=== PATIENT | male | born 1970 | race African-American/Black ===

== ENCOUNTER 2022-02-24 15:03 | Inpatient (IN) | payer MEDICAID ==
[~2022-02-24] VITALS: Ht 193 cm; Wt 77.2 kg
[2022-02-24 15:43] LABS: EOSINOPHILS % (AUTO) 6.9 % (1.0-6.0); HEMATOCRIT 41.9 % (41-53); HEMOGLOBIN 13.4 g/dL (13.5-17.5); LYMPHOCYTES # (AUTO) 2.4 K/uL (1.0-4.8); LYMPHOCYTES % (AUTO) 44.7 % (22.0-44.0); MEAN CORPUSCULAR HGB CONC 32.1 G/dL (31.0-37.0); MEAN CORPUSCULAR VOLUME 75 fL (80-100); MONOCYTES # (AUTO) 0.6 K/uL (0.1-1.0); MONOCYTES % (AUTO) 10.8 % (2.0-9.0); NEUTROPHILS % (AUTO) 36.6 % (40.0-70.0); PLATELET COUNT (AUTO) 161 K/uL (150-450); RED CELL DISTRIBUTION WIDTH 16.4 % (11.5-14.5)
[2022-02-24 15:55] LABS: ANION GAP 5 mmol/L (8-16); CALCIUM, TOTAL 9.1 mg/dL (8.8-10.5); CARBON DIOXIDE 29 mmol/L (22-29); CHLORIDE 107 mmol/L (98-107); GLOMERULAR FILTR. RATE CALC > 60 mL/min (>60); GLUCOSE,RANDOM 66 mg/dL (70-110); POTASSIUM 3.8 mmol/L (3.5-5.1); SODIUM SERUM 141 mmol/L (136-145); UREA NITROGEN, BLOOD 12 mg/dL (7-18)
[2022-02-24 16:00] LABS: ALANINE AMINOTRANSFERASE 19 U/L (12-78); ALBUMIN 3.7 g/dL (3.4-5.0); ALKALINE PHOSPHATASE 74 U/L (46-116); ASPARTATE AMINOTRANSFERASE 16 U/L (15-37); BILIRUBIN,TOTAL 0.7 mg/dL (0.1-1.0); TOTAL PROTEIN, SERUM 7.3 g/dL (6.4-8.2)
[2022-02-24] MEDS ORDERED: HALOPERIDOL 5 MG TABLET PO ONE (16:00)
[2022-02-24] MEDS ORDERED: LORazepam 2 MG TABLET PO ONE (16:00)
[2022-02-24] MEDS ORDERED: DiphenhydrAMINE HCL 25 MG CAPSULE PO ONE (16:00)
[2022-02-24] MEDS ORDERED: ZOLPIDEM TARTRATE 10 MG TABLET PO PRN (17:00)
[2022-02-24 17:26] LABS: APPEARANCE,URINE CLEAR (CLEAR); BILIRUBIN,URINE NEGATIVE (NEGATIVE); GLUCOSE, URINE (UA) NEGATIVE (NEGATIVE); KETONES,URINE NEGATIVE (NEGATIVE); LEUKOCYTE ESTERASE ,URINE NEGATIVE (NEGATIVE); NITRATE,URINE NEGATIVE (NEGATIVE); OCCULT BLOOD,URINE NEGATIVE (NEGATIVE); PH,URINE 7.5 (5.0-8.0); PROTEIN,URINE NEGATIVE (NEGATIVE); UROBILINOGEN,URINE <=1.0 mg/dL (<=1.0)
[2022-02-24 17:35] LABS: AMPHET/METH SCREEN,URINE NEGATIVE (NEGATIVE); BARBITURATE SCREEN, URINE NEGATIVE (NEGATIVE); BENZODIAZEPINES SCREEN,URINE NEGATIVE (NEGATIVE); CANNABINOID SCREEN,URINE NEGATIVE (NEGATIVE); COCAINE SCREEN,URINE NEGATIVE (NEGATIVE); METHADONE SCREEN, URINE NEGATIVE (NEGATIVE); OPIATE SCREEN,URINE NEGATIVE (NEGATIVE)
[2022-02-24 17:36] LABS: PHENCYCLIDINE SCREEN,URINE NEGATIVE (NEGATIVE)
[2022-02-24 18:15] LABS: COVID AG,FIA SOURCE NASAL SWAB
[2022-02-24 22:35] VITALS: BP 130/94
[2022-02-25] MEDS ORDERED: IBUPROFEN 600 MG TABLET PO PRN (01:15)
[2022-02-25] MEDS ORDERED: ONDANSETRON HCL 4 MG TABLET PO PRN ×2 (01:15→14:00)
[2022-02-25] MEDS ORDERED: MAGNESIUM HYDROXIDE SUSPENSION 30 ML UDCUP PO PRN ×2 (01:15→14:00)
[2022-02-25] MEDS ORDERED: CloNIDine HCL 0.1 MG TABLET PO PRN ×2 (01:15→14:00)
[2022-02-25] MEDS ORDERED: BACITRACIN 28 GM OINTMENT TP PRN (01:15)
[2022-02-25] MEDS ORDERED: ALBUTEROL SULFATE HFA 90 MCG/PUFF 8 GM INHALER IH PRN ×2 (01:15→14:00)
[2022-02-25] MEDS ORDERED: OMEPRAZOLE 20 MG CAPSULE PO PRN (01:15)
[2022-02-25] MEDS ORDERED: MAG HYDROX/AL HYDROX/SIMETH ES 30 ML SUSPENSION UDCUP PO PRN ×2 (01:15→14:00)
[2022-02-25] MEDS ORDERED: DOCUSATE SODIUM 100 MG CAPSULE PO PRN ×2 (01:15→14:00)
[2022-02-25] MEDS ORDERED: LOPERAMIDE HCL 2 MG CAPSULE PO PRN ×2 (01:15→14:00)
[2022-02-25] MEDS ORDERED: ACETAMINOPHEN 325 MG TABLET PO PRN ×2 (01:15→14:00)
[2022-02-25] MEDS ORDERED: BENZOCAINE/MENTHOL LOZENGE PO PRN (01:15)
[2022-02-25] MEDS ORDERED: PETROLATUM,WHITE 28 GM JELLY TP PRN ×2 (01:15→14:00)
[2022-02-25] MEDS: OMEPRAZOLE 20 MG CAPSULE PO SCH (08:15)
[2022-02-25 09:07] VITALS: BP 144/86
[2022-02-25] MEDS: LORazepam 2 MG TABLET PO PRN (11:15)
[2022-02-25] MEDS: HALOPERIDOL 5 MG TABLET PO PRN (11:16)
[2022-02-25] MEDS ORDERED: GuaiFENesin/D-METHORPHAN [SUGAR-FREE] 200-20MG/10 ML SYRUP UDCUP PO PRN (14:00)
[2022-02-25] MEDS ORDERED: NICOTINE 14 MG/24 HOUR PATCH TD PRN (14:00)
[2022-02-25] MEDS ORDERED: IBUPROFEN 400 MG TABLET PO PRN (14:00)
[2022-02-25 16:15] VITALS: BP 110/86
[2022-02-25] MEDS: RisperiDONE 2 MG TABLET PO SCH (20:58)
[2022-02-26] MEDS: RisperiDONE 2 MG TABLET PO SCH ×2 (08:21→20:10)
[2022-02-26] MEDS: OMEPRAZOLE 20 MG CAPSULE PO SCH (08:21)
[2022-02-26] MEDS: HALOPERIDOL 5 MG TABLET PO PRN (08:21)
[2022-02-26 16:00] VITALS: BP 110/69
[2022-02-26] MEDS: LORazepam 2 MG TABLET PO PRN (16:49)
[2022-02-27 08:00] VITALS: BP 112/78
[2022-02-27] MEDS: RisperiDONE 2 MG TABLET PO SCH ×2 (08:30→21:07)
[2022-02-27] MEDS: OMEPRAZOLE 20 MG CAPSULE PO SCH (08:30)
[2022-02-27 16:33] VITALS: BP 122/89
[2022-02-28 08:25] VITALS: BP 122/62
[2022-02-28] MEDS: OMEPRAZOLE 20 MG CAPSULE PO SCH (08:37)
[2022-02-28] MEDS: RisperiDONE 2 MG TABLET PO SCH ×2 (08:37→20:14)
[2022-02-28 16:15] VITALS: BP 129/94
[2022-03-01] MEDS: OMEPRAZOLE 20 MG CAPSULE PO SCH (09:15)
[2022-03-01] MEDS: RisperiDONE 2 MG TABLET PO SCH (09:15)
[2022-03-01 09:40] VITALS: BP 115/80
[2022-03-01] MEDS ORDERED: QUET200T PO (10:56)
[2022-03-01] MEDS ORDERED: OMEP20 PO (11:19)
== END 2022-03-01 13:15 | disposition home or self-care (01) | DRG 750 ==
LOC: EMS 15:13 → 3EI 20:39
PROVIDERS: ADMIT Psychiatry & Neurology Psychiatry; ATTEND Psychiatry & Neurology Psychiatry
DX: F20.0 Paranoid schizophrenia (principal); R45.851 Suicidal ideations; F32.A Depression, unspecified; G47.00 Insomnia, unspecified; I10 Essential (primary) hypertension; J44.9 Chronic obstructive pulmonary disease, unspecified; K21.9 Gastro-esophageal reflux disease without esophagitis; K59.00 Constipation, unspecified; F12.90 Cannabis use, unspecified, uncomplicated; Z20.822 Contact with and (suspected) exposure to COVID-19
CPT/HCPCS: 80053; 81003; 85025; 87081; 99285; G0480

== ENCOUNTER 2022-04-22 20:49 | Inpatient (IN) | payer MEDICAID ==
[~2022-04-22] VITALS: Ht 193 cm; Wt 78.9 kg
[~2022-04-22 20:49] MED LIST: OMEP20 PO; QUET200T PO
[2022-04-22 21:36] LABS: COVID AG,FIA SOURCE NASOPHARYNGEAL
[2022-04-22 21:39] LABS: BASOPHILS % (AUTO) 0.6 % (0.0-2.0); EOSINOPHILS % (AUTO) 4.2 % (1.0-6.0); HEMATOCRIT 39.4 % (41-53); HEMOGLOBIN 12.5 g/dL (13.5-17.5); LYMPHOCYTES # (AUTO) 1.8 K/uL (1.0-4.8); LYMPHOCYTES % (AUTO) 34.4 % (22.0-44.0); MEAN CORPUSCULAR HEMOGLOBIN 24.1 pg (26.0-34.0); MEAN CORPUSCULAR HGB CONC 31.7 G/dL (31.0-37.0); MEAN CORPUSCULAR VOLUME 76 fL (80-100); MONOCYTES # (AUTO) 0.6 K/uL (0.1-1.0); MONOCYTES % (AUTO) 11.7 % (2.0-9.0); NEUTROPHILS # (AUTO) 2.5 K/uL (1.8-7.7); NEUTROPHILS % (AUTO) 49.1 % (40.0-70.0); PLATELET COUNT (AUTO) 213 K/uL (150-450); RED BLOOD CELL COUNT(AUTO) 5.19 MIL/uL (4.50-5.90); RED CELL DISTRIBUTION WIDTH 14.1 % (11.5-14.5)
[2022-04-22 21:49] LABS: ANION GAP 9 mmol/L (8-16); CALCIUM, TOTAL 9.6 mg/dL (8.8-10.5); CARBON DIOXIDE 26 mmol/L (22-29); CHLORIDE 100 mmol/L (98-107); CREATININE 1.12 mg/dL (0.60-1.30); GLUCOSE,RANDOM 126 mg/dL (70-110); POTASSIUM 4.1 mmol/L (3.5-5.1); SODIUM SERUM 135 mmol/L (136-145); UREA NITROGEN, BLOOD 12 mg/dL (7-18)
[2022-04-22 21:54] LABS: ALANINE AMINOTRANSFERASE 15 U/L (12-78); ALBUMIN 3.6 g/dL (3.4-5.0); ALKALINE PHOSPHATASE 67 U/L (46-116); ASPARTATE AMINOTRANSFERASE 35 U/L (15-37); BILIRUBIN,TOTAL 0.7 mg/dL (0.1-1.0); GLOMERULAR FILTR. RATE CALC > 60 mL/min (>60); TOTAL PROTEIN, SERUM 7.3 g/dL (6.4-8.2)
[2022-04-22 22:48] LABS: AMPHET/METH SCREEN,URINE NEGATIVE (NEGATIVE); BARBITURATE SCREEN, URINE NEGATIVE (NEGATIVE); BENZODIAZEPINES SCREEN,URINE NEGATIVE (NEGATIVE); CANNABINOID SCREEN,URINE NEGATIVE (NEGATIVE); COCAINE SCREEN,URINE NEGATIVE (NEGATIVE); METHADONE SCREEN, URINE NEGATIVE (NEGATIVE); OPIATE SCREEN,URINE NEGATIVE (NEGATIVE)
[2022-04-22 22:49] LABS: PHENCYCLIDINE SCREEN,URINE NEGATIVE (NEGATIVE)
[2022-04-23] MEDS ORDERED: HALOPERIDOL 5 MG TABLET PO PRN (01:45)
[2022-04-23] MEDS ORDERED: ZOLPIDEM TARTRATE 10 MG TABLET PO PRN (01:45)
[2022-04-23] MEDS ORDERED: INFLUENZA VIRUS VACCINE QVS 2022-23 (6MO+)/PF 60 MCG/0.5 ML SYRINGE IM. ONE (05:15)
[2022-04-23 05:20] VITALS: BP 137/80
[2022-04-23 08:29] VITALS: BP 120/65
[2022-04-23] MEDS ORDERED: MAGNESIUM HYDROXIDE SUSPENSION 30 ML UDCUP PO PRN (19:45)
[2022-04-23] MEDS ORDERED: ACETAMINOPHEN 325 MG TABLET PO PRN (19:45)
[2022-04-23] MEDS ORDERED: NICOTINE 14 MG/24 HOUR PATCH TD PRN (19:45)
[2022-04-23] MEDS ORDERED: LOPERAMIDE HCL 2 MG CAPSULE PO PRN (19:45)
[2022-04-23] MEDS ORDERED: DOCUSATE SODIUM 100 MG CAPSULE PO PRN (19:45)
[2022-04-23] MEDS ORDERED: CloNIDine HCL 0.1 MG TABLET PO PRN (19:45)
[2022-04-23] MEDS ORDERED: ALBUTEROL SULFATE HFA 90 MCG/PUFF 8 GM INHALER IH PRN (19:45)
[2022-04-23] MEDS ORDERED: IBUPROFEN 400 MG TABLET PO PRN (19:45)
[2022-04-23] MEDS ORDERED: GuaiFENesin/D-METHORPHAN [SUGAR-FREE] 200-20MG/10 ML SYRUP UDCUP PO PRN (19:45)
[2022-04-23] MEDS ORDERED: ONDANSETRON HCL 4 MG TABLET PO PRN (19:45)
[2022-04-23] MEDS ORDERED: PETROLATUM,WHITE 28 GM JELLY TP PRN (19:45)
[2022-04-23 20:04] VITALS: BP 113/67
[2022-04-23] MEDS: PRAZOSIN HCL 5 MG CAPSULE PO SCH (21:00)
[2022-04-23] MEDS: QUEtiapine FUMARATE 200 MG TABLET PO SCH (21:41)
[2022-04-24 08:33] VITALS: BP 122/76
[2022-04-24] MEDS: MAG HYDROX/AL HYDROX/SIMETH ES 30 ML SUSPENSION UDCUP PO PRN (18:54)
[2022-04-24 20:18] VITALS: BP 128/90
[2022-04-24] MEDS: QUEtiapine FUMARATE 200 MG TABLET PO SCH (20:28)
[2022-04-24] MEDS: PRAZOSIN HCL 5 MG CAPSULE PO SCH (20:28)
[2022-04-25 08:01] VITALS: BP 108/67
[2022-04-25] MEDS: LORazepam 2 MG TABLET PO PRN (10:03)
[2022-04-25] MEDS: VENLAFAXINE HCL 75 MG ER CAPSULE PO SCH (12:13)
[2022-04-25 20:00] VITALS: BP 104/67
[2022-04-25] MEDS: PRAZOSIN HCL 5 MG CAPSULE PO SCH (21:13)
[2022-04-25] MEDS: QUEtiapine FUMARATE 200 MG TABLET PO SCH (21:13)
[2022-04-26] MEDS: MAG HYDROX/AL HYDROX/SIMETH ES 30 ML SUSPENSION UDCUP PO PRN (04:09)
[2022-04-26 08:03] VITALS: BP 131/89
[2022-04-26] MEDS: VENLAFAXINE HCL 75 MG ER CAPSULE PO SCH (08:31)
[2022-04-26 16:34] VITALS: BP 137/87
[2022-04-26] MEDS: QUEtiapine FUMARATE 200 MG TABLET PO SCH (20:45)
[2022-04-26 20:52] VITALS: BP 90/60
[2022-04-26] MEDS: PRAZOSIN HCL 5 MG CAPSULE PO SCH (20:52)
[2022-04-27 08:11] LABS: GLUCOMETER DEV NAME(LOC) POC.BV
[2022-04-27 08:14] VITALS: BP 100/69
[2022-04-27] MEDS: VENLAFAXINE HCL 75 MG ER CAPSULE PO SCH (08:33)
[2022-04-27] MEDS: FERROUS SULFATE 325 MG EC TABLET PO SCH (16:39)
[2022-04-27 20:35] VITALS: BP 111/66
[2022-04-27] MEDS: QUEtiapine FUMARATE 200 MG TABLET PO SCH (20:42)
[2022-04-27] MEDS: PRAZOSIN HCL 5 MG CAPSULE PO SCH (20:42)
[2022-04-28] MEDS: FERROUS SULFATE 325 MG EC TABLET PO SCH ×2 (06:57→17:08)
[2022-04-28 08:27] VITALS: BP 120/85
[2022-04-28] MEDS: VENLAFAXINE HCL 75 MG ER CAPSULE PO SCH (08:38)
[2022-04-28] MEDS: MAG HYDROX/AL HYDROX/SIMETH ES 30 ML SUSPENSION UDCUP PO PRN ×2 (10:30→20:02)
[2022-04-28 15:01] LABS: GLUCOMETER DEV NAME(LOC) POC.BV
[2022-04-28 20:09] VITALS: BP 120/75
[2022-04-28] MEDS: QUEtiapine FUMARATE 200 MG TABLET PO SCH (20:27)
[2022-04-28] MEDS: PRAZOSIN HCL 5 MG CAPSULE PO SCH (20:28)
[2022-04-29] MEDS: FERROUS SULFATE 325 MG EC TABLET PO SCH ×2 (06:38→16:33)
[2022-04-29 08:56] VITALS: BP 108/77
[2022-04-29] MEDS: VENLAFAXINE HCL 75 MG ER CAPSULE PO SCH (10:00)
[2022-04-29] MEDS: MAG HYDROX/AL HYDROX/SIMETH ES 30 ML SUSPENSION UDCUP PO PRN (16:06)
[2022-04-29 18:26] LABS: GLUCOMETER DEV NAME(LOC) POC.BV
[2022-04-29 20:20] VITALS: BP 128/86
[2022-04-29] MEDS: PRAZOSIN HCL 5 MG CAPSULE PO SCH (20:31)
[2022-04-29] MEDS: QUEtiapine FUMARATE 200 MG TABLET PO SCH (20:31)
[2022-04-30] MEDS: FERROUS SULFATE 325 MG EC TABLET PO SCH ×2 (07:01→17:08)
[2022-04-30 08:34] VITALS: BP 121/83
[2022-04-30] MEDS: VENLAFAXINE HCL 75 MG ER CAPSULE PO SCH (08:43)
[2022-04-30] MEDS: MAG HYDROX/AL HYDROX/SIMETH ES 30 ML SUSPENSION UDCUP PO PRN (11:39)
[2022-04-30 20:10] VITALS: BP 125/62
[2022-04-30] MEDS: PRAZOSIN HCL 5 MG CAPSULE PO SCH (20:35)
[2022-04-30] MEDS: QUEtiapine FUMARATE 200 MG TABLET PO SCH (20:35)
[2022-05-01] MEDS: FERROUS SULFATE 325 MG EC TABLET PO SCH ×2 (07:02→17:01)
[2022-05-01 08:07] VITALS: BP 114/72
[2022-05-01] MEDS: VENLAFAXINE HCL 75 MG ER CAPSULE PO SCH (09:17)
[2022-05-01] MEDS: MAG HYDROX/AL HYDROX/SIMETH ES 30 ML SUSPENSION UDCUP PO PRN (13:28)
[2022-05-01] MEDS: PRAZOSIN HCL 5 MG CAPSULE PO SCH (20:11)
[2022-05-01] MEDS: QUEtiapine FUMARATE 200 MG TABLET PO SCH (20:11)
[2022-05-01 20:33] VITALS: BP 115/71
[2022-05-02 04:19] VITALS: BP 123/82
[2022-05-02] MEDS: LORazepam 2 MG TABLET PO PRN (04:21)
[2022-05-02] MEDS: FERROUS SULFATE 325 MG EC TABLET PO SCH (07:36)
[2022-05-02] MEDS: VENLAFAXINE HCL 75 MG ER CAPSULE PO SCH (08:20)
[2022-05-02 08:37] VITALS: BP 119/88
[2022-05-02] MEDS ORDERED: VENL-67 PO (08:48)
[2022-05-02] MEDS ORDERED: QUET200T PO (08:49)
== END 2022-05-02 09:30 | disposition home or self-care (01) | DRG 750 ==
LOC: EMS 20:50 → B2S 04-23 02:48
PROVIDERS: ADMIT Psychiatry & Neurology Psychiatry; ATTEND Psychiatry & Neurology Psychiatry
DX: F25.1 Schizoaffective disorder, depressive type (principal); E87.1 Hypo-osmolality and hyponatremia; D64.9 Anemia, unspecified; Z20.822 Contact with and (suspected) exposure to COVID-19; F12.10 Cannabis abuse, uncomplicated; F43.10 Post-traumatic stress disorder, unspecified; K21.9 Gastro-esophageal reflux disease without esophagitis; N18.9 Chronic kidney disease, unspecified; Z88.8 Allergy status to other drugs, medicaments and biological substances; Z59.00 Homelessness unspecified; Z79.899 Other long term (current) drug therapy; Z91.14 Patient's other noncompliance with medication regimen
CPT/HCPCS: 80053; 85025; 99285; G0480

== ENCOUNTER 2022-05-20 21:20 | Inpatient (IN) | payer MEDICAID ==
[~2022-05-20] VITALS: Ht 193 cm; Wt 83.9 kg
[~2022-05-20 21:20] MED LIST changes: -OMEP20 PO; +VENL-67 PO
[2022-05-20] MEDS ORDERED: PRAZ2 PO (21:35)
[2022-05-20] MEDS ORDERED: MELA3TAB89 PO (21:35)
[2022-05-20 22:16] LABS: COVID AG,FIA SOURCE NASAL SWAB
[2022-05-20] MEDS ORDERED: QUEtiapine FUMARATE 100 MG TABLET PO ONE (22:30)
[2022-05-20] MEDS ORDERED: PRAZOSIN HCL 2 MG CAPSULE PO ONE (22:30)
[2022-05-20] MEDS ORDERED: LORazepam 2 MG TABLET PO ONE (22:30)
[2022-05-20 23:35] LABS: BASOPHILS % (AUTO) 1.2 % (0.0-2.0); EOSINOPHILS % (AUTO) 5.4 % (1.0-6.0); HEMOGLOBIN 10.8 g/dL (13.5-17.5); LYMPHOCYTES # (AUTO) 1.7 K/uL (1.0-4.8); LYMPHOCYTES % (AUTO) 30.4 % (22.0-44.0); MEAN CORPUSCULAR HEMOGLOBIN 23.7 pg (26.0-34.0); MEAN CORPUSCULAR HGB CONC 31.6 G/dL (31.0-37.0); MEAN CORPUSCULAR VOLUME 75 fL (80-100); MONOCYTES # (AUTO) 0.6 K/uL (0.1-1.0); MONOCYTES % (AUTO) 11.4 % (2.0-9.0); NEUTROPHILS # (AUTO) 2.9 K/uL (1.8-7.7); NEUTROPHILS % (AUTO) 51.6 % (40.0-70.0); PLATELET COUNT (AUTO) 245 K/uL (150-450); RED BLOOD CELL COUNT(AUTO) 4.55 MIL/uL (4.50-5.90); RED CELL DISTRIBUTION WIDTH 13.8 % (11.5-14.5)
[2022-05-20 23:44] LABS: ANION GAP 8 mmol/L (8-16); CALCIUM, TOTAL 8.7 mg/dL (8.8-10.5); CARBON DIOXIDE 25 mmol/L (22-29); CHLORIDE 102 mmol/L (98-107); CREATININE 0.95 mg/dL (0.60-1.30); GLUCOSE,RANDOM 89 mg/dL (70-110); POTASSIUM 3.9 mmol/L (3.5-5.1); SODIUM SERUM 135 mmol/L (136-145); UREA NITROGEN, BLOOD 12 mg/dL (7-18)
[2022-05-20 23:46] LABS: GLOMERULAR FILTR. RATE CALC > 60 mL/min (>60)
[2022-05-20 23:50] LABS: ALANINE AMINOTRANSFERASE 20 U/L (12-78); ALKALINE PHOSPHATASE 71 U/L (46-116); ASPARTATE AMINOTRANSFERASE 18 U/L (15-37); BILIRUBIN,TOTAL 0.4 mg/dL (0.1-1.0); TOTAL PROTEIN, SERUM 6.3 g/dL (6.4-8.2)
[2022-05-21 00:05] LABS: AMPHET/METH SCREEN,URINE NEGATIVE (NEGATIVE); BARBITURATE SCREEN, URINE NEGATIVE (NEGATIVE); BENZODIAZEPINES SCREEN,URINE NEGATIVE (NEGATIVE); CANNABINOID SCREEN,URINE NEGATIVE (NEGATIVE); COCAINE SCREEN,URINE NEGATIVE (NEGATIVE); METHADONE SCREEN, URINE NEGATIVE (NEGATIVE); OPIATE SCREEN,URINE NEGATIVE (NEGATIVE)
[2022-05-21 00:17] LABS: PHENCYCLIDINE SCREEN,URINE NEGATIVE (NEGATIVE)
[2022-05-21 04:45] LABS: APPEARANCE,URINE CLEAR (CLEAR); BILIRUBIN,URINE NEGATIVE (NEGATIVE); GLUCOSE, URINE (UA) NEGATIVE (NEGATIVE); KETONES,URINE NEGATIVE (NEGATIVE); LEUKOCYTE ESTERASE ,URINE NEGATIVE (NEGATIVE); NITRATE,URINE NEGATIVE (NEGATIVE); OCCULT BLOOD,URINE NEGATIVE (NEGATIVE); PH,URINE 6.5 (5.0-8.0); PROTEIN,URINE NEGATIVE (NEGATIVE); SPECIFIC GRAVITIY, URINE 1.007 (1.003-1.030); UROBILINOGEN,URINE <=1.0 mg/dL (<=1.0)
[2022-05-21] MEDS ORDERED: ZOLPIDEM TARTRATE 10 MG TABLET PO PRN (10:15)
[2022-05-21] MEDS ORDERED: LORazepam 2 MG TABLET PO PRN (10:15)
[2022-05-21] MEDS ORDERED: QUEtiapine FUMARATE 100 MG TABLET PO PRN (10:15)
[2022-05-21 19:37] VITALS: BP 127/72
[2022-05-21 21:33] VITALS: BP 125/70
[2022-05-21] MEDS ORDERED: INFLUENZA VIRUS VACCINE QVS 2022-23 (6MO+)/PF 60 MCG/0.5 ML SYRINGE IM. ONE (21:45)
[2022-05-21] MEDS ORDERED: PNEUMOCOCCAL VACCINE POLYVALENT 0.5 ML VIAL [PPSV23] IM. ONE (21:45)
[2022-05-22] MEDS ORDERED: IBUPROFEN 400 MG TABLET PO PRN (07:00)
[2022-05-22] MEDS ORDERED: ACETAMINOPHEN 325 MG TABLET PO PRN (07:00)
[2022-05-22] MEDS ORDERED: DOCUSATE SODIUM 100 MG CAPSULE PO PRN (07:00)
[2022-05-22] MEDS ORDERED: GuaiFENesin/D-METHORPHAN [SUGAR-FREE] 200-20MG/10 ML SYRUP UDCUP PO PRN (07:00)
[2022-05-22] MEDS ORDERED: LOPERAMIDE HCL 2 MG CAPSULE PO PRN (07:00)
[2022-05-22] MEDS ORDERED: ONDANSETRON HCL 4 MG TABLET PO PRN (07:00)
[2022-05-22] MEDS ORDERED: MAG HYDROX/AL HYDROX/SIMETH ES 30 ML SUSPENSION UDCUP PO PRN (07:00)
[2022-05-22] MEDS ORDERED: MAGNESIUM HYDROXIDE SUSPENSION 30 ML UDCUP PO PRN (07:00)
[2022-05-22] MEDS ORDERED: PETROLATUM,WHITE 28 GM JELLY TP PRN (07:00)
[2022-05-22] MEDS ORDERED: NICOTINE 14 MG/24 HOUR PATCH TD PRN (07:00)
[2022-05-22] MEDS ORDERED: ALBUTEROL SULFATE HFA 90 MCG/PUFF 8 GM INHALER IH PRN (07:00)
[2022-05-22] MEDS ORDERED: CloNIDine HCL 0.1 MG TABLET PO PRN (07:00)
[2022-05-22 09:50] VITALS: BP 122/70
[2022-05-22] MEDS: VENLAFAXINE HCL 75 MG ER CAPSULE PO SCH (10:43)
[2022-05-22] MEDS: OMEPRAZOLE 20 MG CAPSULE PO SCH (17:01)
[2022-05-22] MEDS: MELATONIN 3 MG TABLET PO SCH (20:15)
[2022-05-22] MEDS: QUEtiapine FUMARATE 200 MG TABLET PO SCH (20:15)
[2022-05-22] MEDS: PRAZOSIN HCL 2 MG CAPSULE PO SCH (20:15)
[2022-05-22 20:49] VITALS: BP 138/84
[2022-05-23 08:13] VITALS: BP 124/85
[2022-05-23] MEDS: VENLAFAXINE HCL 75 MG ER CAPSULE PO SCH (09:41)
[2022-05-23] MEDS: OMEPRAZOLE 20 MG CAPSULE PO SCH (09:41)
[2022-05-23] MEDS: QUEtiapine FUMARATE 200 MG TABLET PO SCH (20:32)
[2022-05-23] MEDS: PRAZOSIN HCL 2 MG CAPSULE PO SCH (20:32)
[2022-05-23] MEDS: MELATONIN 3 MG TABLET PO SCH (20:33)
[2022-05-23 21:03] VITALS: BP 128/75
[2022-05-24 08:48] VITALS: BP 117/63
[2022-05-24] MEDS: VENLAFAXINE HCL 75 MG ER CAPSULE PO SCH (10:08)
[2022-05-24] MEDS: OMEPRAZOLE 20 MG CAPSULE PO SCH (10:09)
[2022-05-24] MEDS: MELATONIN 3 MG TABLET PO SCH (20:35)
[2022-05-24] MEDS: PRAZOSIN HCL 2 MG CAPSULE PO SCH (20:35)
[2022-05-24] MEDS: QUEtiapine FUMARATE 200 MG TABLET PO SCH (20:35)
[2022-05-24 20:58] VITALS: BP 120/77
[2022-05-25 07:54] LABS: CHOL/HDL RATIO 2.9 (4.2-7.3)
[2022-05-25 07:59] LABS: HEMOGLOBIN A1C 4.8 % (3.8-5.6)
[2022-05-25 08:55] VITALS: BP 112/75
[2022-05-25] MEDS: OMEPRAZOLE 20 MG CAPSULE PO SCH (10:05)
[2022-05-25] MEDS: VENLAFAXINE HCL 75 MG ER CAPSULE PO SCH (10:05)
[2022-05-25 20:44] VITALS: BP 124/76
[2022-05-25] MEDS: MELATONIN 3 MG TABLET PO SCH (20:59)
[2022-05-25] MEDS: QUEtiapine FUMARATE 200 MG TABLET PO SCH (20:59)
[2022-05-25] MEDS: PRAZOSIN HCL 2 MG CAPSULE PO SCH (20:59)
[2022-05-26 07:41] LABS: GLUCOMETER DEV NAME(LOC) POC.BV
[2022-05-26] MEDS: VENLAFAXINE HCL 75 MG ER CAPSULE PO SCH (08:50)
[2022-05-26] MEDS: OMEPRAZOLE 20 MG CAPSULE PO SCH (09:22)
[2022-05-26 09:30] VITALS: BP 124/65
[2022-05-26] MEDS ORDERED: QUET200T30 PO (10:48)
[2022-05-26] MEDS ORDERED: MELA3TAB89 PO (10:48)
[2022-05-26] MEDS ORDERED: VENL-67 PO (10:48)
[2022-05-26] MEDS ORDERED: PRAZ2 PO (10:48)
[2022-05-26] MEDS ORDERED: OMEP20 PO (10:48)
== END 2022-05-26 14:52 | disposition home or self-care (01) | DRG 750 ==
LOC: EMS 21:33 → B3A 05-21 11:57
PROVIDERS: ADMIT Psychiatry & Neurology Psychiatry; ATTEND Psychiatry & Neurology Psychiatry
DX: F25.1 Schizoaffective disorder, depressive type (principal); R45.851 Suicidal ideations; E87.1 Hypo-osmolality and hyponatremia; F43.12 Post-traumatic stress disorder, chronic; N18.9 Chronic kidney disease, unspecified; G47.00 Insomnia, unspecified; K21.9 Gastro-esophageal reflux disease without esophagitis; Z20.822 Contact with and (suspected) exposure to COVID-19; F12.10 Cannabis abuse, uncomplicated; Z88.8 Allergy status to other drugs, medicaments and biological substances; Z59.00 Homelessness unspecified; Z79.899 Other long term (current) drug therapy
CPT/HCPCS: 80053; 80061; 80307; 81003; 83036; 85025; 99285; G0480

== ENCOUNTER 2022-05-28 02:33 | Emergency (ER) | payer MEDICAID ==
[~2022-05-28] VITALS: Ht 193 cm; Wt 83.0 kg
[~2022-05-28 02:33] MED LIST changes: +MELA3TAB89 PO; +OMEP20 PO; +PRAZ2 PO; -QUET200T PO; +QUET200T30 PO
[2022-05-28] MEDS ORDERED: FAMOTIDINE 40 MG in SODIUM CHLORIDE 0.9% 100 ML IV ONE (03:00)
[2022-05-28] MEDS ORDERED: SODIUM CHLORIDE 0.9% 1,000 ML IV ONE (03:00)
[2022-05-28 03:10] LABS: BASOPHILS % (AUTO) 0.8 % (0.0-2.0); EOSINOPHILS % (AUTO) 4.1 % (1.0-6.0); HEMATOCRIT 36.2 % (41-53); HEMOGLOBIN 11.3 g/dL (13.5-17.5); LYMPHOCYTES # (AUTO) 1.6 K/uL (1.0-4.8); LYMPHOCYTES % (AUTO) 25.4 % (22.0-44.0); MEAN CORPUSCULAR HEMOGLOBIN 23.2 pg (26.0-34.0); MEAN CORPUSCULAR HGB CONC 31.2 G/dL (31.0-37.0); MEAN CORPUSCULAR VOLUME 75 fL (80-100); MONOCYTES # (AUTO) 0.8 K/uL (0.1-1.0); MONOCYTES % (AUTO) 12.6 % (2.0-9.0); NEUTROPHILS # (AUTO) 3.5 K/uL (1.8-7.7); NEUTROPHILS % (AUTO) 57.1 % (40.0-70.0); PLATELET COUNT (AUTO) 215 K/uL (150-450); RED BLOOD CELL COUNT(AUTO) 4.86 MIL/uL (4.50-5.90); RED CELL DISTRIBUTION WIDTH 14.1 % (11.5-14.5)
[2022-05-28] MEDS ORDERED: SODIUM CHLORIDE 0.9% 100 ML ONE (03:16)
[2022-05-28] MEDS ORDERED: FAMOTIDINE 10 MG/ML 2 ML VIAL ONE (03:16)
[2022-05-28 03:18] LABS: ANION GAP 6 mmol/L (8-16); CALCIUM, TOTAL 8.9 mg/dL (8.8-10.5); CARBON DIOXIDE 29 mmol/L (22-29); CHLORIDE 103 mmol/L (98-107); GLUCOSE,RANDOM 94 mg/dL (70-110); POTASSIUM 3.9 mmol/L (3.5-5.1); SODIUM SERUM 138 mmol/L (136-145); UREA NITROGEN, BLOOD 12 mg/dL (7-18)
[2022-05-28 03:25] LABS: GLOMERULAR FILTR. RATE CALC > 60 mL/min (>60)
[2022-05-28 03:27] LABS: ALANINE AMINOTRANSFERASE 22 U/L (12-78); ALBUMIN 3.2 g/dL (3.4-5.0); ALKALINE PHOSPHATASE 67 U/L (46-116); ASPARTATE AMINOTRANSFERASE 19 U/L (15-37); BILIRUBIN,TOTAL 0.4 mg/dL (0.1-1.0); LIPASE 253 U/L (73-393); TOTAL PROTEIN, SERUM 6.9 g/dL (6.4-8.2)
[2022-05-28 04:04] LABS: APPEARANCE,URINE CLEAR (CLEAR); BILIRUBIN,URINE NEGATIVE (NEGATIVE); GLUCOSE, URINE (UA) NEGATIVE (NEGATIVE); KETONES,URINE NEGATIVE (NEGATIVE); LEUKOCYTE ESTERASE ,URINE NEGATIVE (NEGATIVE); NITRATE,URINE NEGATIVE (NEGATIVE); OCCULT BLOOD,URINE NEGATIVE (NEGATIVE); PH,URINE 7.5 (5.0-8.0); PROTEIN,URINE NEGATIVE (NEGATIVE); SPECIFIC GRAVITIY, URINE 1.009 (1.003-1.030); UROBILINOGEN,URINE <=1.0 mg/dL (<=1.0)
[2022-05-28] MEDS ORDERED: PB/HYOSCY/ATR/SCOP/LIDO/MAALOX 55 ML BOTTLE PO ONE (04:15)
[2022-05-28 06:00] VITALS: BP 139/75
== END 2022-05-28 06:51 | disposition home or self-care (01) ==
LOC: EMS 02:34
DX: R11.2 Nausea with vomiting, unspecified (principal); F41.9 Anxiety disorder, unspecified; F32.A Depression, unspecified; F20.9 Schizophrenia, unspecified; F43.10 Post-traumatic stress disorder, unspecified; N18.30 Chronic kidney disease, stage 3 unspecified; K20.90 Esophagitis, unspecified without bleeding; F17.210 Nicotine dependence, cigarettes, uncomplicated; F12.90 Cannabis use, unspecified, uncomplicated; Z91.018 Allergy to other foods
CPT/HCPCS: 99285; 96365; 80053; 81003; 83690; 84484; 85025; 36415; 74022; 93005; J3490; J7030; J7050

== ENCOUNTER 2022-06-01 10:48 | Inpatient (IN) | payer MEDICAID ==
[~2022-06-01] VITALS: Ht 193 cm; Wt 82.2 kg
[2022-06-01] MEDS ORDERED: QUET25TA PO (11:00)
[2022-06-01 12:22] LABS: BASOPHILS % (AUTO) 0.9 % (0.0-2.0); EOSINOPHILS % (AUTO) 4.5 % (1.0-6.0); HEMATOCRIT 35.3 % (41-53); LYMPHOCYTES # (AUTO) 1.8 K/uL (1.0-4.8); LYMPHOCYTES % (AUTO) 35.3 % (22.0-44.0); MEAN CORPUSCULAR HEMOGLOBIN 23.1 pg (26.0-34.0); MEAN CORPUSCULAR HGB CONC 31.2 G/dL (31.0-37.0); MEAN CORPUSCULAR VOLUME 74 fL (80-100); MONOCYTES # (AUTO) 0.5 K/uL (0.1-1.0); MONOCYTES % (AUTO) 10.7 % (2.0-9.0); NEUTROPHILS # (AUTO) 2.4 K/uL (1.8-7.7); NEUTROPHILS % (AUTO) 48.6 % (40.0-70.0); PLATELET COUNT (AUTO) 199 K/uL (150-450); RED BLOOD CELL COUNT(AUTO) 4.75 MIL/uL (4.50-5.90); RED CELL DISTRIBUTION WIDTH 13.9 % (11.5-14.5)
[2022-06-01 12:27] LABS: ANION GAP 7 mmol/L (8-16); CALCIUM, TOTAL 8.3 mg/dL (8.8-10.5); CARBON DIOXIDE 30 mmol/L (22-29); CHLORIDE 106 mmol/L (98-107); CREATININE 1.09 mg/dL (0.60-1.30); GLUCOSE,RANDOM 99 mg/dL (70-110); POTASSIUM 3.8 mmol/L (3.5-5.1); SODIUM SERUM 143 mmol/L (136-145); UREA NITROGEN, BLOOD 9 mg/dL (7-18)
[2022-06-01 12:28] LABS: ALANINE AMINOTRANSFERASE 18 U/L (12-78); ALKALINE PHOSPHATASE 69 U/L (46-116); ASPARTATE AMINOTRANSFERASE 15 U/L (15-37); BILIRUBIN,TOTAL 0.4 mg/dL (0.1-1.0); TOTAL PROTEIN, SERUM 6.6 g/dL (6.4-8.2)
[2022-06-01 12:34] LABS: GLOMERULAR FILTR. RATE CALC > 60 mL/min (>60)
[2022-06-01 12:52] LABS: AMPHET/METH SCREEN,URINE NEGATIVE (NEGATIVE); BARBITURATE SCREEN, URINE NEGATIVE (NEGATIVE); BENZODIAZEPINES SCREEN,URINE NEGATIVE (NEGATIVE); CANNABINOID SCREEN,URINE POSITIVE (NEGATIVE); COCAINE SCREEN,URINE NEGATIVE (NEGATIVE); METHADONE SCREEN, URINE NEGATIVE (NEGATIVE); OPIATE SCREEN,URINE NEGATIVE (NEGATIVE)
[2022-06-01 12:54] LABS: PHENCYCLIDINE SCREEN,URINE NEGATIVE (NEGATIVE)
[2022-06-01 15:57] LABS: COVID AG,FIA SOURCE NASOPHARYNGEAL
[2022-06-01] MEDS ORDERED: QUEtiapine FUMARATE 100 MG TABLET PO PRN (16:00)
[2022-06-01 17:45] VITALS: BP 135/83
[2022-06-01] MEDS ORDERED: GuaiFENesin/D-METHORPHAN [SUGAR-FREE] 200-20MG/10 ML SYRUP UDCUP PO PRN (19:00)
[2022-06-01] MEDS ORDERED: CloNIDine HCL 0.1 MG TABLET PO PRN (19:00)
[2022-06-01] MEDS ORDERED: LOPERAMIDE HCL 2 MG CAPSULE PO PRN (19:00)
[2022-06-01] MEDS ORDERED: ACETAMINOPHEN 325 MG TABLET PO PRN (19:00)
[2022-06-01] MEDS ORDERED: ONDANSETRON HCL 4 MG TABLET PO PRN (19:00)
[2022-06-01] MEDS ORDERED: PETROLATUM,WHITE 28 GM JELLY TP PRN (19:00)
[2022-06-01] MEDS ORDERED: ALBUTEROL SULFATE HFA 90 MCG/PUFF 8 GM INHALER IH PRN (19:00)
[2022-06-01] MEDS ORDERED: NICOTINE 14 MG/24 HOUR PATCH TD PRN (19:00)
[2022-06-01] MEDS ORDERED: IBUPROFEN 400 MG TABLET PO PRN (19:00)
[2022-06-01] MEDS: QUEtiapine FUMARATE 200 MG TABLET PO SCH (20:39)
[2022-06-01] MEDS: PRAZOSIN HCL 2 MG CAPSULE PO SCH (20:39)
[2022-06-01] MEDS: MELATONIN 3 MG TABLET PO SCH (20:40)
[2022-06-02 08:05] VITALS: BP 96/58
[2022-06-02] MEDS: VENLAFAXINE HCL 75 MG ER CAPSULE PO SCH (09:14)
[2022-06-02] MEDS: OMEPRAZOLE 20 MG CAPSULE PO SCH (09:16)
[2022-06-02 16:14] VITALS: BP 120/73
[2022-06-02] MEDS: PRAZOSIN HCL 2 MG CAPSULE PO SCH (20:46)
[2022-06-02] MEDS: QUEtiapine FUMARATE 200 MG TABLET PO SCH (20:46)
[2022-06-02] MEDS: MELATONIN 3 MG TABLET PO SCH (20:46)
[2022-06-03 08:42] VITALS: BP 111/62
[2022-06-03] MEDS: OMEPRAZOLE 20 MG CAPSULE PO SCH (08:50)
[2022-06-03] MEDS: VENLAFAXINE HCL 75 MG ER CAPSULE PO SCH (08:50)
[2022-06-03 16:26] VITALS: BP 128/78
[2022-06-03] MEDS: MELATONIN 3 MG TABLET PO SCH (20:48)
[2022-06-03] MEDS: QUEtiapine FUMARATE 200 MG TABLET PO SCH (20:48)
[2022-06-03] MEDS: PRAZOSIN HCL 2 MG CAPSULE PO SCH (20:48)
[2022-06-04 08:18] LABS: BASOPHILS % (AUTO) 0.5 % (0.0-2.0); EOSINOPHILS % (AUTO) 6.5 % (1.0-6.0); HEMATOCRIT 36.9 % (41-53); HEMOGLOBIN 11.7 g/dL (13.5-17.5); LYMPHOCYTES # (AUTO) 1.2 K/uL (1.0-4.8); LYMPHOCYTES % (AUTO) 28.2 % (22.0-44.0); MEAN CORPUSCULAR HEMOGLOBIN 23.8 pg (26.0-34.0); MEAN CORPUSCULAR HGB CONC 31.8 G/dL (31.0-37.0); MEAN CORPUSCULAR VOLUME 75 fL (80-100); MONOCYTES # (AUTO) 0.6 K/uL (0.1-1.0); MONOCYTES % (AUTO) 13.4 % (2.0-9.0); NEUTROPHILS # (AUTO) 2.2 K/uL (1.8-7.7); NEUTROPHILS % (AUTO) 51.4 % (40.0-70.0); PLATELET COUNT (AUTO) 189 K/uL (150-450); RED BLOOD CELL COUNT(AUTO) 4.94 MIL/uL (4.50-5.90); RED CELL DISTRIBUTION WIDTH 13.7 % (11.5-14.5)
[2022-06-04 09:00] VITALS: BP 105/65
[2022-06-04] MEDS: VENLAFAXINE HCL 75 MG ER CAPSULE PO SCH (09:00)
[2022-06-04] MEDS: DOCUSATE SODIUM 100 MG CAPSULE PO PRN (09:00)
[2022-06-04] MEDS: OMEPRAZOLE 20 MG CAPSULE PO SCH (09:00)
[2022-06-04] MEDS ORDERED: CloZAPine 25 MG TABLET PO SCH (14:00)
[2022-06-04 16:45] VITALS: BP 107/69
[2022-06-04] MEDS: MELATONIN 3 MG TABLET PO SCH (20:33)
[2022-06-04] MEDS: QUEtiapine FUMARATE 200 MG TABLET PO SCH (20:34)
[2022-06-04] MEDS: PRAZOSIN HCL 2 MG CAPSULE PO SCH (20:34)
[2022-06-05] MEDS: VENLAFAXINE HCL 75 MG ER CAPSULE PO SCH (08:08)
[2022-06-05] MEDS: OMEPRAZOLE 20 MG CAPSULE PO SCH (08:09)
[2022-06-05 08:38] VITALS: BP 129/89
[2022-06-05] MEDS ORDERED: CloZAPine 25 MG TABLET PO SCH ×2 (09:00→21:00)
[2022-06-05 16:26] VITALS: BP 104/59
[2022-06-05] MEDS: MELATONIN 3 MG TABLET PO SCH (20:14)
[2022-06-05] MEDS: QUEtiapine FUMARATE 200 MG TABLET PO SCH (20:14)
[2022-06-05] MEDS: PRAZOSIN HCL 2 MG CAPSULE PO SCH (20:14)
[2022-06-06] MEDS: OMEPRAZOLE 20 MG CAPSULE PO SCH (08:22)
[2022-06-06] MEDS: VENLAFAXINE HCL 75 MG ER CAPSULE PO SCH (08:23)
[2022-06-06 08:47] VITALS: BP 111/71
[2022-06-06] MEDS ORDERED: CloZAPine 25 MG TABLET PO SCH ×2 (09:00→21:00)
[2022-06-06 16:15] VITALS: BP 117/76
[2022-06-06] MEDS: PRAZOSIN HCL 2 MG CAPSULE PO SCH (20:50)
[2022-06-06] MEDS: QUEtiapine FUMARATE 200 MG TABLET PO SCH (20:51)
[2022-06-06] MEDS: MELATONIN 3 MG TABLET PO SCH (20:51)
[2022-06-06] MEDS: ZOLPIDEM TARTRATE 10 MG TABLET PO PRN (20:53)
[2022-06-07 06:42] LABS: COVID AG,FIA SOURCE NASAL SWAB
[2022-06-07] MEDS: CloZAPine 25 MG TABLET PO SCH ×2 (08:09→20:14)
[2022-06-07] MEDS: VENLAFAXINE HCL 75 MG ER CAPSULE PO SCH (08:09)
[2022-06-07] MEDS: OMEPRAZOLE 20 MG CAPSULE PO SCH (08:09)
[2022-06-07 09:56] VITALS: BP 147/87
[2022-06-07 16:40] VITALS: BP 139/87
[2022-06-07] MEDS: MELATONIN 3 MG TABLET PO SCH (20:12)
[2022-06-07] MEDS: PRAZOSIN HCL 2 MG CAPSULE PO SCH (20:12)
[2022-06-07] MEDS: QUEtiapine FUMARATE 200 MG TABLET PO SCH (20:13)
[2022-06-08] MEDS: CloZAPine 25 MG TABLET PO SCH ×2 (08:24→20:47)
[2022-06-08] MEDS: VENLAFAXINE HCL 75 MG ER CAPSULE PO SCH (08:24)
[2022-06-08] MEDS: OMEPRAZOLE 20 MG CAPSULE PO SCH (08:24)
[2022-06-08 09:04] VITALS: BP 119/73
[2022-06-08 17:10] VITALS: BP 134/83
[2022-06-08] MEDS: PRAZOSIN HCL 2 MG CAPSULE PO SCH (20:46)
[2022-06-08] MEDS: QUEtiapine FUMARATE 200 MG TABLET PO SCH (20:46)
[2022-06-08] MEDS: MELATONIN 3 MG TABLET PO SCH (20:47)
[2022-06-09 09:00] VITALS: BP 140/87
[2022-06-09] MEDS ORDERED: CloZAPine 25 MG TABLET PO SCH (09:00)
[2022-06-09] MEDS: VENLAFAXINE HCL 75 MG ER CAPSULE PO SCH (09:14)
[2022-06-09] MEDS: OMEPRAZOLE 20 MG CAPSULE PO SCH (09:14)
[2022-06-09] MEDS: MELATONIN 3 MG TABLET PO SCH (20:15)
[2022-06-09] MEDS: PRAZOSIN HCL 2 MG CAPSULE PO SCH (20:15)
[2022-06-09] MEDS: QUEtiapine FUMARATE 200 MG TABLET PO SCH (20:15)
[2022-06-09] MEDS ORDERED: CloZAPine 100 MG TABLET PO SCH (21:00)
[2022-06-09] MEDS: ZOLPIDEM TARTRATE 10 MG TABLET PO PRN (21:26)
[2022-06-10] MEDS: VENLAFAXINE HCL 75 MG ER CAPSULE PO SCH (08:47)
[2022-06-10] MEDS: OMEPRAZOLE 20 MG CAPSULE PO SCH (08:48)
[2022-06-10 09:00] VITALS: BP 129/83
[2022-06-10] MEDS ORDERED: CloZAPine 25 MG TABLET PO SCH (09:00)
[2022-06-10 16:00] VITALS: BP 139/83
[2022-06-10] MEDS: LORazepam 2 MG TABLET PO PRN (19:57)
[2022-06-10] MEDS: QUEtiapine FUMARATE 200 MG TABLET PO SCH (20:30)
[2022-06-10] MEDS: PRAZOSIN HCL 2 MG CAPSULE PO SCH (20:30)
[2022-06-10] MEDS: MELATONIN 3 MG TABLET PO SCH (20:30)
[2022-06-10] MEDS: ZOLPIDEM TARTRATE 10 MG TABLET PO PRN (20:45)
[2022-06-10] MEDS ORDERED: CloZAPine 100 MG TABLET PO SCH (21:00)
[2022-06-11 07:45] LABS: BASOPHILS % (AUTO) 0.6 % (0.0-2.0); EOSINOPHILS % (AUTO) 6.8 % (1.0-6.0); HEMATOCRIT 36.6 % (41-53); HEMOGLOBIN 11.6 g/dL (13.5-17.5); LYMPHOCYTES # (AUTO) 1.8 K/uL (1.0-4.8); LYMPHOCYTES % (AUTO) 49.6 % (22.0-44.0); MEAN CORPUSCULAR HEMOGLOBIN 23.4 pg (26.0-34.0); MEAN CORPUSCULAR HGB CONC 31.8 G/dL (31.0-37.0); MEAN CORPUSCULAR VOLUME 74 fL (80-100); MONOCYTES # (AUTO) 0.4 K/uL (0.1-1.0); MONOCYTES % (AUTO) 11.6 % (2.0-9.0); NEUTROPHILS # (AUTO) 1.1 K/uL (1.8-7.7); NEUTROPHILS % (AUTO) 31.4 % (40.0-70.0); PLATELET COUNT (AUTO) 194 K/uL (150-450); RED BLOOD CELL COUNT(AUTO) 4.97 MIL/uL (4.50-5.90); RED CELL DISTRIBUTION WIDTH 13.9 % (11.5-14.5)
[2022-06-11] MEDS: VENLAFAXINE HCL 75 MG ER CAPSULE PO SCH (08:19)
[2022-06-11] MEDS: OMEPRAZOLE 20 MG CAPSULE PO SCH (08:19)
[2022-06-11] MEDS ORDERED: CloZAPine 25 MG TABLET PO SCH (09:00)
[2022-06-11 10:13] VITALS: BP 122/88
[2022-06-11 18:19] VITALS: BP 130/80
[2022-06-11] MEDS: PRAZOSIN HCL 2 MG CAPSULE PO SCH (20:23)
[2022-06-11] MEDS: MELATONIN 3 MG TABLET PO SCH (20:24)
[2022-06-11] MEDS: QUEtiapine FUMARATE 200 MG TABLET PO SCH (20:24)
[2022-06-11] MEDS ORDERED: CloZAPine 100 MG TABLET PO SCH (21:00)
[2022-06-12 08:00] VITALS: BP 120/67
[2022-06-12] MEDS: OMEPRAZOLE 20 MG CAPSULE PO SCH (10:10)
[2022-06-12] MEDS: VENLAFAXINE HCL 75 MG ER CAPSULE PO SCH (10:10)
[2022-06-12] MEDS: CloZAPine 100 MG TABLET PO SCH ×2 (10:10→21:52)
[2022-06-12 16:42] VITALS: BP 109/67
[2022-06-12] MEDS: PRAZOSIN HCL 2 MG CAPSULE PO SCH (21:50)
[2022-06-12] MEDS: MELATONIN 3 MG TABLET PO SCH (21:50)
[2022-06-12] MEDS: QUEtiapine FUMARATE 200 MG TABLET PO SCH (21:51)
[2022-06-13 08:00] VITALS: BP 131/97
[2022-06-13] MEDS: OMEPRAZOLE 20 MG CAPSULE PO SCH (09:32)
[2022-06-13] MEDS: CloZAPine 100 MG TABLET PO SCH ×2 (09:32→21:10)
[2022-06-13] MEDS: VENLAFAXINE HCL 75 MG ER CAPSULE PO SCH (09:32)
[2022-06-13 16:00] VITALS: BP 130/85
[2022-06-13] MEDS: MELATONIN 3 MG TABLET PO SCH (21:09)
[2022-06-13] MEDS: PRAZOSIN HCL 2 MG CAPSULE PO SCH (21:09)
[2022-06-13] MEDS: QUEtiapine FUMARATE 200 MG TABLET PO SCH (21:10)
[2022-06-14 07:42] LABS: COVID AG,FIA SOURCE NASAL SWAB
[2022-06-14] MEDS: OMEPRAZOLE 20 MG CAPSULE PO SCH (08:55)
[2022-06-14] MEDS: VENLAFAXINE HCL 75 MG ER CAPSULE PO SCH (08:55)
[2022-06-14] MEDS ORDERED: CloZAPine 25 MG TABLET PO SCH (09:00)
[2022-06-14 09:14] VITALS: BP 135/86
[2022-06-14 16:43] VITALS: BP 160/81
[2022-06-14] MEDS: QUEtiapine FUMARATE 200 MG TABLET PO SCH (20:10)
[2022-06-14] MEDS: PRAZOSIN HCL 2 MG CAPSULE PO SCH (20:10)
[2022-06-14] MEDS: MELATONIN 3 MG TABLET PO SCH (20:10)
[2022-06-14] MEDS ORDERED: CloZAPine 100 MG TABLET PO SCH (21:00)
[2022-06-15] MEDS: OMEPRAZOLE 20 MG CAPSULE PO SCH (08:30)
[2022-06-15] MEDS: VENLAFAXINE HCL 75 MG ER CAPSULE PO SCH (08:31)
[2022-06-15 08:32] VITALS: BP 119/77
[2022-06-15] MEDS ORDERED: CloZAPine 25 MG TABLET PO SCH (09:00)
[2022-06-15 17:00] VITALS: BP 120/80
[2022-06-15] MEDS ORDERED: CloZAPine 100 MG TABLET PO SCH (21:00)
[2022-06-15] MEDS: QUEtiapine FUMARATE 200 MG TABLET PO SCH (21:12)
[2022-06-15] MEDS: MELATONIN 3 MG TABLET PO SCH (21:12)
[2022-06-15] MEDS: PRAZOSIN HCL 2 MG CAPSULE PO SCH (21:13)
[2022-06-16] MEDS: VENLAFAXINE HCL 75 MG ER CAPSULE PO SCH (08:16)
[2022-06-16] MEDS: OMEPRAZOLE 20 MG CAPSULE PO SCH (08:16)
[2022-06-16] MEDS: CloZAPine 100 MG TABLET PO SCH ×2 (08:17→21:20)
[2022-06-16 09:35] VITALS: BP 127/82
[2022-06-16 16:29] VITALS: BP 134/85
[2022-06-16] MEDS: PRAZOSIN HCL 2 MG CAPSULE PO SCH (20:17)
[2022-06-16] MEDS: QUEtiapine FUMARATE 200 MG TABLET PO SCH (20:17)
[2022-06-16] MEDS: MELATONIN 3 MG TABLET PO SCH (20:17)
[2022-06-16] MEDS: LORazepam 2 MG TABLET PO PRN (21:26)
[2022-06-17] MEDS: MAG HYDROX/AL HYDROX/SIMETH ES 30 ML SUSPENSION UDCUP PO PRN ×2 (00:35→19:00)
[2022-06-17 08:00] VITALS: BP 133/95
[2022-06-17] MEDS: VENLAFAXINE HCL 75 MG ER CAPSULE PO SCH (08:44)
[2022-06-17] MEDS: OMEPRAZOLE 20 MG CAPSULE PO SCH (08:44)
[2022-06-17] MEDS: CloZAPine 100 MG TABLET PO SCH ×2 (08:45→20:35)
[2022-06-17 09:00] VITALS: BP 133/95
[2022-06-17 16:19] VITALS: BP 134/88
[2022-06-17] MEDS: QUEtiapine FUMARATE 200 MG TABLET PO SCH (20:35)
[2022-06-17] MEDS: PRAZOSIN HCL 2 MG CAPSULE PO SCH (20:35)
[2022-06-17] MEDS: MELATONIN 3 MG TABLET PO SCH (20:36)
[2022-06-17] MEDS: LORazepam 2 MG TABLET PO PRN (20:36)
[2022-06-18] MEDS: ZOLPIDEM TARTRATE 10 MG TABLET PO PRN (01:14)
[2022-06-18 08:15] VITALS: BP 117/71
[2022-06-18] MEDS: VENLAFAXINE HCL 75 MG ER CAPSULE PO SCH (09:56)
[2022-06-18] MEDS: OMEPRAZOLE 20 MG CAPSULE PO SCH (09:56)
[2022-06-18] MEDS: CloZAPine 100 MG TABLET PO SCH ×2 (09:56→20:14)
[2022-06-18] MEDS: DOCUSATE SODIUM 100 MG CAPSULE PO PRN ×2 (14:44→14:51)
[2022-06-18] MEDS: MAGNESIUM HYDROXIDE SUSPENSION 30 ML UDCUP PO PRN ×2 (14:44→14:51)
[2022-06-18 15:02] LABS: BASOPHILS % (AUTO) 0.4 % (0.0-2.0); EOSINOPHILS % (AUTO) 2.7 % (1.0-6.0); HEMATOCRIT 36.1 % (41-53); HEMOGLOBIN 11.2 g/dL (13.5-17.5); LYMPHOCYTES # (AUTO) 1.7 K/uL (1.0-4.8); LYMPHOCYTES % (AUTO) 17.4 % (22.0-44.0); MEAN CORPUSCULAR HEMOGLOBIN 22.4 pg (26.0-34.0); MEAN CORPUSCULAR HGB CONC 30.9 G/dL (31.0-37.0); MEAN CORPUSCULAR VOLUME 72 fL (80-100); MONOCYTES % (AUTO) 10.6 % (2.0-9.0); NEUTROPHILS # (AUTO) 6.8 K/uL (1.8-7.7); NEUTROPHILS % (AUTO) 68.9 % (40.0-70.0); PLATELET COUNT (AUTO) 277 K/uL (150-450); RED BLOOD CELL COUNT(AUTO) 4.99 MIL/uL (4.50-5.90); RED CELL DISTRIBUTION WIDTH 14.2 % (11.5-14.5)
[2022-06-18 16:21] VITALS: BP 131/88
[2022-06-18] MEDS: MELATONIN 3 MG TABLET PO SCH (20:14)
[2022-06-18] MEDS: PRAZOSIN HCL 2 MG CAPSULE PO SCH (20:14)
[2022-06-18] MEDS: QUEtiapine FUMARATE 200 MG TABLET PO SCH (20:14)
[2022-06-19] MEDS: CloZAPine 100 MG TABLET PO SCH ×2 (09:10→20:51)
[2022-06-19] MEDS: VENLAFAXINE HCL 75 MG ER CAPSULE PO SCH (09:10)
[2022-06-19] MEDS: OMEPRAZOLE 20 MG CAPSULE PO SCH (09:10)
[2022-06-19 09:14] VITALS: BP 158/95
[2022-06-19 16:12] VITALS: BP 120/73
[2022-06-19] MEDS: MELATONIN 3 MG TABLET PO SCH (20:50)
[2022-06-19] MEDS: QUEtiapine FUMARATE 200 MG TABLET PO SCH (20:51)
[2022-06-19] MEDS: PRAZOSIN HCL 2 MG CAPSULE PO SCH (20:51)
[2022-06-19] MEDS: ZOLPIDEM TARTRATE 10 MG TABLET PO PRN (21:49)
[2022-06-20] MEDS: MAG HYDROX/AL HYDROX/SIMETH ES 30 ML SUSPENSION UDCUP PO PRN (05:33)
[2022-06-20 08:30] VITALS: BP 135/89
[2022-06-20] MEDS: OMEPRAZOLE 20 MG CAPSULE PO SCH (09:09)
[2022-06-20] MEDS: CloZAPine 100 MG TABLET PO SCH ×2 (09:09→20:40)
[2022-06-20] MEDS: VENLAFAXINE HCL 75 MG ER CAPSULE PO SCH (09:09)
[2022-06-20] MEDS: DOCUSATE SODIUM 100 MG CAPSULE PO PRN (09:15)
[2022-06-20] MEDS: MAGNESIUM HYDROXIDE SUSPENSION 30 ML UDCUP PO PRN (09:15)
[2022-06-20 16:20] VITALS: BP 146/90
[2022-06-20] MEDS: PRAZOSIN HCL 2 MG CAPSULE PO SCH (20:40)
[2022-06-20] MEDS: QUEtiapine FUMARATE 200 MG TABLET PO SCH (20:40)
[2022-06-20] MEDS: MELATONIN 3 MG TABLET PO SCH (20:42)
[2022-06-21 06:51] LABS: COVID AG,FIA SOURCE NASAL SWAB
[2022-06-21 08:00] VITALS: BP 135/87
[2022-06-21] MEDS: CloZAPine 100 MG TABLET PO SCH ×2 (09:46→21:01)
[2022-06-21] MEDS: VENLAFAXINE HCL 75 MG ER CAPSULE PO SCH (09:47)
[2022-06-21] MEDS: OMEPRAZOLE 20 MG CAPSULE PO SCH (09:47)
[2022-06-21] MEDS: MAGNESIUM HYDROXIDE SUSPENSION 30 ML UDCUP PO PRN (11:27)
[2022-06-21] MEDS ORDERED: PALIPERIDONE PALMITATE 234 MG/1.5 ML SYRINGE IM SCH (15:00)
[2022-06-21 16:17] VITALS: BP 138/75
[2022-06-21] MEDS: PRAZOSIN HCL 2 MG CAPSULE PO SCH (21:01)
[2022-06-21] MEDS: MELATONIN 3 MG TABLET PO SCH (21:03)
[2022-06-21 22:57] VITALS: BP 130/80
[2022-06-22] MEDS: MAGNESIUM HYDROXIDE SUSPENSION 30 ML UDCUP PO PRN (07:07)
[2022-06-22] MEDS: VENLAFAXINE HCL 75 MG ER CAPSULE PO SCH (08:55)
[2022-06-22] MEDS: CloZAPine 100 MG TABLET PO SCH ×2 (08:55→20:26)
[2022-06-22] MEDS: OMEPRAZOLE 20 MG CAPSULE PO SCH (08:55)
[2022-06-22 09:34] VITALS: BP 137/95
[2022-06-22 16:18] VITALS: BP 144/88
[2022-06-22] MEDS: MELATONIN 3 MG TABLET PO SCH (20:25)
[2022-06-22] MEDS: PRAZOSIN HCL 2 MG CAPSULE PO SCH (20:25)
[2022-06-23] MEDS: OMEPRAZOLE 20 MG CAPSULE PO SCH (08:19)
[2022-06-23] MEDS: CloZAPine 100 MG TABLET PO SCH ×2 (08:20→20:57)
[2022-06-23] MEDS: VENLAFAXINE HCL 75 MG ER CAPSULE PO SCH (08:20)
[2022-06-23 09:31] VITALS: BP 137/88
[2022-06-23 17:28] VITALS: BP 136/77
[2022-06-23] MEDS: PRAZOSIN HCL 2 MG CAPSULE PO SCH (20:57)
[2022-06-23] MEDS: MELATONIN 3 MG TABLET PO SCH (20:58)
[2022-06-24] MEDS ORDERED: PRAZ2 PO (05:20)
[2022-06-24] MEDS ORDERED: CLOZ100T11 PO ×2 (05:20)
[2022-06-24] MEDS ORDERED: PALI234D IM (05:20)
[2022-06-24] MEDS ORDERED: VENL-67 PO (05:20)
[2022-06-24] MEDS ORDERED: MELA3TAB89 PO (05:20)
[2022-06-24] MEDS ORDERED: OMEP20 PO (05:20)
[2022-06-24] MEDS: OMEPRAZOLE 20 MG CAPSULE PO SCH (08:51)
[2022-06-24] MEDS: VENLAFAXINE HCL 75 MG ER CAPSULE PO SCH (08:51)
[2022-06-24] MEDS: CloZAPine 100 MG TABLET PO SCH (08:52)
[2022-06-24 09:11] VITALS: BP 134/90
== END 2022-06-24 10:30 | disposition home or self-care (01) | DRG 750 ==
LOC: EMS 10:51 → 3EI 17:14
PROVIDERS: ADMIT Psychiatry & Neurology Psychiatry; ATTEND Psychiatry & Neurology Psychiatry
DX: F25.1 Schizoaffective disorder, depressive type (principal); E44.0 Moderate protein-calorie malnutrition; R45.851 Suicidal ideations; F12.10 Cannabis abuse, uncomplicated; F17.210 Nicotine dependence, cigarettes, uncomplicated; F41.9 Anxiety disorder, unspecified; F43.12 Post-traumatic stress disorder, chronic; Z20.822 Contact with and (suspected) exposure to COVID-19; K21.9 Gastro-esophageal reflux disease without esophagitis; K44.9 Diaphragmatic hernia without obstruction or gangrene; G47.00 Insomnia, unspecified; N18.30 Chronic kidney disease, stage 3 unspecified; Z88.8 Allergy status to other drugs, medicaments and biological substances; Z91.018 Allergy to other foods; Z79.899 Other long term (current) drug therapy; Z68.22 Body mass index [BMI] 22.0-22.9, adult; Z71.6 Tobacco abuse counseling; Z59.00 Homelessness unspecified
CPT/HCPCS: 74019; 80053; 80307; 85025; 87081; 99285; G0480; Q0162

== ENCOUNTER 2022-07-04 21:42 | Inpatient (IN) | payer MEDICAID ==
[~2022-07-04] VITALS: Ht 193 cm; Wt 82.0 kg
[~2022-07-04 21:42] MED LIST changes: +CLOZ100T11 PO; +PALI234D IM; -QUET200T30 PO
[2022-07-04 22:40] LABS: COVID AG,FIA SOURCE NASAL SWAB
[2022-07-04 22:47] LABS: BASOPHILS % (AUTO) 0.7 % (0.0-2.0); EOSINOPHILS % (AUTO) 5.8 % (1.0-6.0); HEMATOCRIT 32.4 % (41-53); HEMOGLOBIN 9.9 g/dL (13.5-17.5); LYMPHOCYTES # (AUTO) 1.6 K/uL (1.0-4.8); LYMPHOCYTES % (AUTO) 32.1 % (22.0-44.0); MEAN CORPUSCULAR HEMOGLOBIN 21.8 pg (26.0-34.0); MEAN CORPUSCULAR HGB CONC 30.7 G/dL (31.0-37.0); MEAN CORPUSCULAR VOLUME 71 fL (80-100); MONOCYTES # (AUTO) 0.5 K/uL (0.1-1.0); MONOCYTES % (AUTO) 10.6 % (2.0-9.0); NEUTROPHILS # (AUTO) 2.5 K/uL (1.8-7.7); NEUTROPHILS % (AUTO) 50.8 % (40.0-70.0); PLATELET COUNT (AUTO) 280 K/uL (150-450); RED BLOOD CELL COUNT(AUTO) 4.56 MIL/uL (4.50-5.90); RED CELL DISTRIBUTION WIDTH 14.5 % (11.5-14.5)
[2022-07-04 22:59] LABS: ANION GAP 9 mmol/L (8-16); CALCIUM, TOTAL 8.8 mg/dL (8.8-10.5); CARBON DIOXIDE 27 mmol/L (22-29); CHLORIDE 107 mmol/L (98-107); CREATININE 1.13 mg/dL (0.60-1.30); GLOMERULAR FILTR. RATE CALC > 60 mL/min (>60); GLUCOSE,RANDOM 117 mg/dL (70-110); SODIUM SERUM 143 mmol/L (136-145); UREA NITROGEN, BLOOD 14 mg/dL (7-18)
[2022-07-04] MEDS ORDERED: ONDANSETRON HCL 4 MG/2 ML VIAL IVP ONE (23:00)
[2022-07-04] MEDS ORDERED: AZITHROMYCIN 500 MG/NS 250 ML IV ONE (23:00)
[2022-07-04] MEDS ORDERED: CefTRIAXone 1 GM/DEXTROSE 50 ML IV ONE (23:00)
[2022-07-04 23:02] LABS: LACTIC ACID 1.5 mmol/L (0.4-2.0)
[2022-07-04 23:18] LABS: ALANINE AMINOTRANSFERASE 27 U/L (12-78); ALBUMIN 2.9 g/dL (3.4-5.0); ALKALINE PHOSPHATASE 87 U/L (46-116); ASPARTATE AMINOTRANSFERASE 27 U/L (15-37); BILIRUBIN,TOTAL 0.2 mg/dL (0.1-1.0); CREATINE KINASE, TOTAL ONLY 181 U/L (39-308); TOTAL PROTEIN, SERUM 7.3 g/dL (6.4-8.2)
[2022-07-04 23:42] LABS: INFLUENZA TYPE A NEGATIVE FOR TYPE A (NEGATIVE); INFLUENZA TYPE B NEGATIVE FOR TYPE B (NEGATIVE)
[2022-07-05] MEDS ORDERED: ONDANSETRON HCL 4 MG/2 ML VIAL IVP PRN (00:45)
[2022-07-05] MEDS ORDERED: ACETAMINOPHEN 325 MG TABLET PO PRN (00:45)
[2022-07-05] MEDS ORDERED: ALBUTEROL SULFATE 2.5 MG/0.5 ML NEB SOLUTION NEB PRN (00:45)
[2022-07-05] MEDS ORDERED: IPRATROPIUM BROMIDE 0.5 MG/2.5 ML NEB SOLUTION NEB PRN (00:45)
[2022-07-05 06:01] LABS: % IRON SATURATION 5.3 % (30-44)
[2022-07-05] MEDS ORDERED: SODIUM CHLORIDE 0.9% 100 ML ONE (06:17)
[2022-07-05] MEDS ORDERED: IOHEXOL 350 MG/ML 100 ML VIAL ONE (06:17)
[2022-07-05 07:01] LABS: AMPHET/METH SCREEN,URINE NEGATIVE (NEGATIVE); BARBITURATE SCREEN, URINE NEGATIVE (NEGATIVE); BENZODIAZEPINES SCREEN,URINE NEGATIVE (NEGATIVE); CANNABINOID SCREEN,URINE POSITIVE (NEGATIVE); COCAINE SCREEN,URINE NEGATIVE (NEGATIVE); METHADONE SCREEN, URINE NEGATIVE (NEGATIVE); OPIATE SCREEN,URINE NEGATIVE (NEGATIVE); PHENCYCLIDINE SCREEN,URINE NEGATIVE (NEGATIVE)
[2022-07-05 07:59] LABS: APPEARANCE,URINE CLEAR (CLEAR); BILIRUBIN,URINE NEGATIVE (NEGATIVE); GLUCOSE, URINE (UA) NEGATIVE (NEGATIVE); KETONES,URINE NEGATIVE (NEGATIVE); LEUKOCYTE ESTERASE ,URINE NEGATIVE (NEGATIVE); NITRATE,URINE NEGATIVE (NEGATIVE); OCCULT BLOOD,URINE NEGATIVE (NEGATIVE); PROTEIN,URINE TRACE mg/dL (NEGATIVE); SPECIFIC GRAVITIY, URINE 1.029 (1.003-1.030)
[2022-07-05] MEDS ORDERED: HEPARIN SODIUM,PORCINE 5,000 UNITS/ML VIAL SQ SCH (08:00)
[2022-07-05 08:37] LABS: HEMOGLOBIN 9.3 g/dL (13.5-17.5)
[2022-07-05] MEDS: AZITHROMYCIN 250 MG TABLET PO SCH (09:09)
[2022-07-05] MEDS: DOCUSATE SODIUM 100 MG CAPSULE PO SCH ×2 (09:09→20:29)
[2022-07-05 11:54] VITALS: BP 145/83
[2022-07-05 12:01] VITALS: BP 145/83
[2022-07-05 15:41] LABS: HEMATOCRIT 30.1 % (41-53); HEMOGLOBIN 9.1 g/dL (13.5-17.5)
[2022-07-05 16:35] VITALS: BP 135/82
[2022-07-05 20:06] LABS: HEMATOCRIT 29.4 % (41-53); HEMOGLOBIN 8.9 g/dL (13.5-17.5)
[2022-07-05 20:31] VITALS: BP 131/77
[2022-07-05] MEDS ORDERED: SODIUM CHLORIDE 0.9% 500 ML IV ONE (22:53)
[2022-07-05] MEDS: CefTRIAXone 1 GM/DEXTROSE 50 ML IV SCH (23:07)
[2022-07-06] VITALS (9 sets, daily range): BP systolic 113–140; BP diastolic 67–90
[2022-07-06 06:57] LABS: BASOPHILS % (AUTO) 0.3 % (0.0-2.0); EOSINOPHILS % (AUTO) 3.4 % (1.0-6.0); HEMATOCRIT 30.4 % (41-53); HEMOGLOBIN 9.5 g/dL (13.5-17.5); LYMPHOCYTES # (AUTO) 2.2 K/uL (1.0-4.8); MEAN CORPUSCULAR HEMOGLOBIN 21.8 pg (26.0-34.0); MEAN CORPUSCULAR HGB CONC 31.3 G/dL (31.0-37.0); MEAN CORPUSCULAR VOLUME 70 fL (80-100); MONOCYTES # (AUTO) 0.8 K/uL (0.1-1.0); MONOCYTES % (AUTO) 8.1 % (2.0-9.0); NEUTROPHILS # (AUTO) 6.7 K/uL (1.8-7.7); NEUTROPHILS % (AUTO) 66.2 % (40.0-70.0); PLATELET COUNT (AUTO) 280 K/uL (150-450); RED BLOOD CELL COUNT(AUTO) 4.37 MIL/uL (4.50-5.90); RED CELL DISTRIBUTION WIDTH 15.1 % (11.5-14.5)
[2022-07-06 07:08] LABS: ANION GAP 6 mmol/L (8-16); CALCIUM, TOTAL 8.8 mg/dL (8.8-10.5); CARBON DIOXIDE 26 mmol/L (22-29); CHLORIDE 105 mmol/L (98-107); CREATININE 1.16 mg/dL (0.60-1.30); GLOMERULAR FILTR. RATE CALC > 60 mL/min (>60); GLUCOSE,RANDOM 97 mg/dL (70-110); POTASSIUM 4.2 mmol/L (3.5-5.1); SODIUM SERUM 137 mmol/L (136-145); UREA NITROGEN, BLOOD 13 mg/dL (7-18)
[2022-07-06] MEDS: HEPARIN SODIUM,PORCINE 5,000 UNITS/ML VIAL SQ SCH ×4 (08:00→23:38)
[2022-07-06] MEDS: DOCUSATE SODIUM 100 MG CAPSULE PO SCH ×2 (09:09→20:39)
[2022-07-06] MEDS: AZITHROMYCIN 250 MG TABLET PO SCH (09:09)
[2022-07-06] MEDS ORDERED: PANT-31 PO (09:38)
[2022-07-06] MEDS: CefTRIAXone 1 GM/DEXTROSE 50 ML IV SCH (23:38)
[2022-07-07 01:09] VITALS: BP 121/84
[2022-07-07 06:44] VITALS: BP 146/96
[2022-07-07 07:15] VITALS: BP 142/80
[2022-07-07] MEDS: DOCUSATE SODIUM 100 MG CAPSULE PO SCH (08:52)
[2022-07-07] MEDS: AZITHROMYCIN 250 MG TABLET PO SCH (08:53)
[2022-07-07] MEDS: HEPARIN SODIUM,PORCINE 5,000 UNITS/ML VIAL SQ SCH (08:53)
[2022-07-07 12:00] VITALS: BP 151/94
[2022-07-07 16:28] VITALS: BP 129/84
== END 2022-07-07 16:25 | disposition home or self-care (01) | DRG 48 ==
LOC: EMS 21:43 → AHU 07-05 06:39 → 5S 07-05 09:32
PROVIDERS: ADMIT Internal Medicine; ATTEND Internal Medicine
PROC: 4A00X4Z Measurement of Central Nervous Electrical Activity, External Approach (ICD-10-PCS; principal; 2022-07-05)
DX: G90.9 Disorder of the autonomic nervous system, unspecified (principal); G92.8 Other toxic encephalopathy; J18.9 Pneumonia, unspecified organism; R56.9 Unspecified convulsions; D50.9 Iron deficiency anemia, unspecified; F17.200 Nicotine dependence, unspecified, uncomplicated; F20.9 Schizophrenia, unspecified; F32.A Depression, unspecified; F43.10 Post-traumatic stress disorder, unspecified; I12.9 Hypertensive chronic kidney disease with stage 1 through stage 4 chronic kidney disease, or unspecified chronic kidney disease; K21.00 Gastro-esophageal reflux disease with esophagitis, without bleeding; Z20.822 Contact with and (suspected) exposure to COVID-19; N18.30 Chronic kidney disease, stage 3 unspecified; K21.9 Gastro-esophageal reflux disease without esophagitis; Z79.899 Other long term (current) drug therapy; T40.715A Adverse effect of cannabis, initial encounter
CPT/HCPCS: 70450; 71045; 71275; 74176; 80048; 80053; 80307; 81003; 82550; 83540; 83550; 83605; 83735; 83880; 84484; 85014; 85018; 85025; 85045; 85379; 87040; 87804; 93005; 93306; 95816; 99285; G0378; G0480; J0456; J0696; J1644; J2405; J7040; J7050; Q9967; 36415-L1; 36415-TC; U0003

== ENCOUNTER 2022-08-19 20:38 | Emergency (ER) | payer MEDICAID ==
[~2022-08-19] VITALS: Ht 193 cm; Wt 82.0 kg
[~2022-08-19 20:38] MED LIST changes: +PANT-31 PO
[2022-08-19 21:25] LABS: AMPHET/METH SCREEN,URINE NEGATIVE (NEGATIVE); BARBITURATE SCREEN, URINE NEGATIVE (NEGATIVE); BENZODIAZEPINES SCREEN,URINE NEGATIVE (NEGATIVE); CANNABINOID SCREEN,URINE POSITIVE (NEGATIVE); COCAINE SCREEN,URINE NEGATIVE (NEGATIVE); METHADONE SCREEN, URINE NEGATIVE (NEGATIVE); OPIATE SCREEN,URINE NEGATIVE (NEGATIVE); PHENCYCLIDINE SCREEN,URINE NEGATIVE (NEGATIVE)
[2022-08-19 22:03] LABS: BASOPHILS % (AUTO) 0.8 % (0.0-2.0); EOSINOPHILS % (AUTO) 4.7 % (1.0-6.0); HEMOGLOBIN 9.1 g/dL (13.5-17.5); LYMPHOCYTES # (AUTO) 2.1 K/uL (1.0-4.8); LYMPHOCYTES % (AUTO) 39.1 % (22.0-44.0); MEAN CORPUSCULAR HGB CONC 30.4 G/dL (31.0-37.0); MEAN CORPUSCULAR VOLUME 66 fL (80-100); MONOCYTES # (AUTO) 0.5 K/uL (0.1-1.0); MONOCYTES % (AUTO) 9.3 % (2.0-9.0); NEUTROPHILS # (AUTO) 2.5 K/uL (1.8-7.7); NEUTROPHILS % (AUTO) 46.1 % (40.0-70.0); PLATELET COUNT (AUTO) 350 K/uL (150-450); RED BLOOD CELL COUNT(AUTO) 4.56 MIL/uL (4.50-5.90); RED CELL DISTRIBUTION WIDTH 18.7 % (11.5-14.5)
[2022-08-19 22:07] LABS: ANION GAP 7 mmol/L (8-16); CALCIUM, TOTAL 8.6 mg/dL (8.8-10.5); CARBON DIOXIDE 26 mmol/L (22-29); CHLORIDE 110 mmol/L (98-107); CREATININE 1.07 mg/dL (0.60-1.30); GLOMERULAR FILTR. RATE CALC > 60 mL/min (>60); GLUCOSE,RANDOM 106 mg/dL (70-110); POTASSIUM 3.3 mmol/L (3.5-5.1); SODIUM SERUM 143 mmol/L (136-145); UREA NITROGEN, BLOOD 11 mg/dL (7-18)
[2022-08-19 22:13] LABS: ALANINE AMINOTRANSFERASE 14 U/L (12-78); ALBUMIN 3.1 g/dL (3.4-5.0); ALKALINE PHOSPHATASE 73 U/L (46-116); ASPARTATE AMINOTRANSFERASE 20 U/L (15-37); BILIRUBIN,TOTAL 0.3 mg/dL (0.1-1.0); TOTAL PROTEIN, SERUM 6.6 g/dL (6.4-8.2)
[2022-08-19 22:37] LABS: COVID AG,FIA SOURCE NASAL SWAB
[2022-08-19 23:36] VITALS: BP 126/70
== END 2022-08-20 01:31 | disposition home or self-care (01) ==
LOC: EMS 20:40
DX: R45.851 Suicidal ideations (principal); F41.9 Anxiety disorder, unspecified; F32.A Depression, unspecified; I10 Essential (primary) hypertension; F20.9 Schizophrenia, unspecified; F17.210 Nicotine dependence, cigarettes, uncomplicated; F12.90 Cannabis use, unspecified, uncomplicated; Z20.822 Contact with and (suspected) exposure to COVID-19
CPT/HCPCS: 99284; 87426; 80053; 85025; 36415; 80307 ×2; G0480

== ENCOUNTER 2022-08-23 21:03 | Inpatient (IN) | payer MEDICAID ==
[~2022-08-23] VITALS: Ht 193 cm; Wt 81.7 kg
[2022-08-23] MEDS ORDERED: ZOLPIDEM TARTRATE 10 MG TABLET PO PRN (22:00)
[2022-08-23] MEDS ORDERED: LORazepam 2 MG TABLET PO PRN (22:00)
[2022-08-23] MEDS ORDERED: HALOPERIDOL 5 MG TABLET PO PRN (22:00)
[2022-08-23] MEDS ORDERED: INFLUENZA VIRUS VACCINE QVS 2022-23 (6MO+)/PF 60 MCG/0.5 ML SYRINGE IM. ONE (23:45)
[2022-08-23] MEDS ORDERED: PNEUMOCOCCAL VACCINE POLYVALENT 0.5 ML VIAL [PPSV23] IM. ONE (23:45)
[2022-08-24 00:13] VITALS: BP 115/63
[2022-08-24 07:32] LABS: BASOPHILS % (AUTO) 0.9 % (0.0-2.0); EOSINOPHILS % (AUTO) 5.3 % (1.0-6.0); HEMATOCRIT 29.3 % (41-53); HEMOGLOBIN 9.2 g/dL (13.5-17.5); LYMPHOCYTES # (AUTO) 2.3 K/uL (1.0-4.8); LYMPHOCYTES % (AUTO) 53.3 % (22.0-44.0); MEAN CORPUSCULAR HEMOGLOBIN 20.4 pg (26.0-34.0); MEAN CORPUSCULAR HGB CONC 31.5 G/dL (31.0-37.0); MEAN CORPUSCULAR VOLUME 65 fL (80-100); MONOCYTES # (AUTO) 0.5 K/uL (0.1-1.0); MONOCYTES % (AUTO) 11.8 % (2.0-9.0); NEUTROPHILS # (AUTO) 1.2 K/uL (1.8-7.7); NEUTROPHILS % (AUTO) 28.7 % (40.0-70.0); PLATELET COUNT (AUTO) 259 K/uL (150-450); RED BLOOD CELL COUNT(AUTO) 4.52 MIL/uL (4.50-5.90); RED CELL DISTRIBUTION WIDTH 20.1 % (11.5-14.5)
[2022-08-24 07:34] LABS: HEMOGLOBIN A1C 5.1 % (3.8-5.6)
[2022-08-24 07:49] LABS: ALANINE AMINOTRANSFERASE 15 U/L (12-78); ALBUMIN 2.5 g/dL (3.4-5.0); ALKALINE PHOSPHATASE 64 U/L (46-116); ANION GAP 4 mmol/L (8-16); ASPARTATE AMINOTRANSFERASE 19 U/L (15-37); BILIRUBIN,TOTAL 0.3 mg/dL (0.1-1.0); CALCIUM, TOTAL 8.4 mg/dL (8.8-10.5); CARBON DIOXIDE 29 mmol/L (22-29); CHLORIDE 109 mmol/L (98-107); CHOL/HDL RATIO 2.9 (4.2-7.3); CHOLESTEROL 148 mg/dL (131-200); GLOMERULAR FILTR. RATE CALC > 60 mL/min (>60); GLUCOSE,RANDOM 91 mg/dL (70-110); HDL CHOLESTEROL 51 mg/dL (40-60); LDL CHOL (CALC.) 87 mg/dL (0-130); POTASSIUM 3.8 mmol/L (3.5-5.1); SODIUM SERUM 142 mmol/L (136-145); THYROID STIMULATING HORMONE 1.65 uIU/mL (0.36-3.74); TOTAL PROTEIN, SERUM 5.7 g/dL (6.4-8.2); TRIGLYCERIDES 51 mg/dL (15-150); UREA NITROGEN, BLOOD 10 mg/dL (7-18)
[2022-08-24 08:16] VITALS: BP 115/63
[2022-08-24] MEDS ORDERED: LOPERAMIDE HCL 2 MG CAPSULE PO PRN (15:15)
[2022-08-24] MEDS ORDERED: HydrOXYzine PAMOATE 50 MG CAPSULE PO PRN (15:15)
[2022-08-24] MEDS ORDERED: PROMETHAZINE HCL 25 MG TABLET PO PRN (15:15)
[2022-08-24] MEDS ORDERED: MAG HYDROX/AL HYDROX/SIMETH ES 30 ML SUSPENSION UDCUP PO PRN (15:15)
[2022-08-24] MEDS ORDERED: TUBERCULIN, PURIFIED PROTEIN DERIVATIVE 5 TU/0.1 ML SYRINGE ID ONE (15:15)
[2022-08-24] MEDS ORDERED: ACETAMINOPHEN 325 MG TABLET PO PRN (15:15)
[2022-08-24] MEDS ORDERED: GABAPENTIN 300 MG CAPSULE PO PRN (15:15)
[2022-08-24] MEDS ORDERED: GuaiFENesin/D-METHORPHAN [SUGAR-FREE] 200-20MG/10 ML SYRUP UDCUP PO PRN (15:15)
[2022-08-24] MEDS: THIAMINE 100 MG TABLET PO SCH (16:28)
[2022-08-24 20:25] VITALS: BP 104/66
[2022-08-24] MEDS: CloZAPine 100 MG TABLET PO SCH (20:39)
[2022-08-24] MEDS: MELATONIN 5 MG TABLET PO SCH (20:39)
[2022-08-25 07:31] LABS: BASOPHILS % (AUTO) 0.7 % (0.0-2.0); EOSINOPHILS % (AUTO) 6.7 % (1.0-6.0); HEMATOCRIT 30.2 % (41-53); HEMOGLOBIN 9.4 g/dL (13.5-17.5); LYMPHOCYTES # (AUTO) 2.3 K/uL (1.0-4.8); MEAN CORPUSCULAR HEMOGLOBIN 20.3 pg (26.0-34.0); MEAN CORPUSCULAR HGB CONC 31.1 G/dL (31.0-37.0); MEAN CORPUSCULAR VOLUME 65 fL (80-100); MONOCYTES # (AUTO) 0.5 K/uL (0.1-1.0); MONOCYTES % (AUTO) 10.4 % (2.0-9.0); NEUTROPHILS # (AUTO) 1.7 K/uL (1.8-7.7); NEUTROPHILS % (AUTO) 35.2 % (40.0-70.0); PLATELET COUNT (AUTO) 239 K/uL (150-450); RED BLOOD CELL COUNT(AUTO) 4.63 MIL/uL (4.50-5.90); RED CELL DISTRIBUTION WIDTH 19.7 % (11.5-14.5)
[2022-08-25 07:55] LABS: ALANINE AMINOTRANSFERASE 14 U/L (12-78); ALBUMIN 2.6 g/dL (3.4-5.0); ALKALINE PHOSPHATASE 63 U/L (46-116); ANION GAP 4 mmol/L (8-16); ASPARTATE AMINOTRANSFERASE 15 U/L (15-37); BILIRUBIN,TOTAL 0.4 mg/dL (0.1-1.0); CALCIUM, TOTAL 8.6 mg/dL (8.8-10.5); CARBON DIOXIDE 28 mmol/L (22-29); CHLORIDE 110 mmol/L (98-107); CHOLESTEROL 152 mg/dL (131-200); CREATININE 1.21 mg/dL (0.60-1.30); GLOMERULAR FILTR. RATE CALC > 60 mL/min (>60); GLUCOSE,RANDOM 87 mg/dL (70-110); HDL CHOLESTEROL 50 mg/dL (40-60); LDL CHOL (CALC.) 86 mg/dL (0-130); POTASSIUM 4.1 mmol/L (3.5-5.1); SODIUM SERUM 142 mmol/L (136-145); TOTAL PROTEIN, SERUM 5.9 g/dL (6.4-8.2); TRIGLYCERIDES 79 mg/dL (15-150); UREA NITROGEN, BLOOD 10 mg/dL (7-18)
[2022-08-25 08:11] VITALS: BP 145/67
[2022-08-25] MEDS: THIAMINE 100 MG TABLET PO SCH ×2 (08:34→16:28)
[2022-08-25] MEDS: MULTIVITAMINS WITH MINERALS, THERAPEUTIC TABLET PO SCH (08:34)
[2022-08-25] MEDS: OMEGA-3/DHA/EPA/FISH OIL 1,000 MG CAPSULE PO SCH (08:34)
[2022-08-25] MEDS: NALTREXONE HCL 50 MG TABLET PO SCH (08:34)
[2022-08-25] MEDS: PARoxetine HCL 20 MG TABLET PO SCH (08:35)
[2022-08-25] MEDS: FOLIC ACID 1 MG TABLET PO SCH (08:35)
[2022-08-25] MEDS: CloZAPine 100 MG TABLET PO SCH ×2 (08:35→20:36)
[2022-08-25] MEDS ORDERED: PALIPERIDONE PALMITATE 234 MG/1.5 ML SYRINGE IM ONE (09:00)
[2022-08-25] MEDS ORDERED: NALTREXONE HCL 50 MG TABLET PO SCH (09:00)
[2022-08-25 20:23] VITALS: BP 122/72
[2022-08-25] MEDS: MELATONIN 5 MG TABLET PO SCH (20:36)
[2022-08-26 08:17] VITALS: BP 130/86
[2022-08-26] MEDS: CloZAPine 100 MG TABLET PO SCH ×2 (08:28→20:49)
[2022-08-26] MEDS: NALTREXONE HCL 50 MG TABLET PO SCH (08:28)
[2022-08-26] MEDS: PARoxetine HCL 20 MG TABLET PO SCH (08:28)
[2022-08-26] MEDS: FOLIC ACID 1 MG TABLET PO SCH (08:28)
[2022-08-26] MEDS: OMEGA-3/DHA/EPA/FISH OIL 1,000 MG CAPSULE PO SCH (08:28)
[2022-08-26] MEDS: THIAMINE 100 MG TABLET PO SCH ×2 (08:28→16:31)
[2022-08-26] MEDS: MULTIVITAMINS WITH MINERALS, THERAPEUTIC TABLET PO SCH (08:28)
[2022-08-26] MEDS: MAGNESIUM HYDROXIDE SUSPENSION 30 ML UDCUP PO PRN (12:53)
[2022-08-26 20:13] VITALS: BP 129/82
[2022-08-26] MEDS: MELATONIN 5 MG TABLET PO SCH (20:48)
[2022-08-27 08:08] VITALS: BP 120/89
[2022-08-27] MEDS: CloZAPine 100 MG TABLET PO SCH ×2 (08:15→20:09)
[2022-08-27] MEDS: FOLIC ACID 1 MG TABLET PO SCH (08:15)
[2022-08-27] MEDS: OMEGA-3/DHA/EPA/FISH OIL 1,000 MG CAPSULE PO SCH (08:16)
[2022-08-27] MEDS: THIAMINE 100 MG TABLET PO SCH ×2 (08:16→16:25)
[2022-08-27] MEDS: MULTIVITAMINS WITH MINERALS, THERAPEUTIC TABLET PO SCH (08:16)
[2022-08-27] MEDS: NALTREXONE HCL 50 MG TABLET PO SCH (08:16)
[2022-08-27] MEDS ORDERED: PARoxetine HCL 20 MG TABLET PO SCH (09:00)
[2022-08-27] MEDS: MELATONIN 5 MG TABLET PO SCH (20:09)
[2022-08-27 20:10] VITALS: BP 112/82
[2022-08-28 07:56] LABS: BASOPHILS % (AUTO) 0.8 % (0.0-2.0); EOSINOPHILS % (AUTO) 4.3 % (1.0-6.0); HEMOGLOBIN 10.8 g/dL (13.5-17.5); LYMPHOCYTES # (AUTO) 2.5 K/uL (1.0-4.8); LYMPHOCYTES % (AUTO) 45.1 % (22.0-44.0); MEAN CORPUSCULAR HEMOGLOBIN 19.6 pg (26.0-34.0); MEAN CORPUSCULAR HGB CONC 30.9 G/dL (31.0-37.0); MEAN CORPUSCULAR VOLUME 64 fL (80-100); MONOCYTES # (AUTO) 0.6 K/uL (0.1-1.0); MONOCYTES % (AUTO) 11.6 % (2.0-9.0); NEUTROPHILS # (AUTO) 2.1 K/uL (1.8-7.7); NEUTROPHILS % (AUTO) 38.2 % (40.0-70.0); PLATELET COUNT (AUTO) 265 K/uL (150-450); RED CELL DISTRIBUTION WIDTH 19.7 % (11.5-14.5)
[2022-08-28 08:11] VITALS: BP 119/84
[2022-08-28] MEDS: OMEGA-3/DHA/EPA/FISH OIL 1,000 MG CAPSULE PO SCH (08:20)
[2022-08-28] MEDS: CloZAPine 100 MG TABLET PO SCH ×2 (08:21→20:17)
[2022-08-28] MEDS: THIAMINE 100 MG TABLET PO SCH ×2 (08:21→16:10)
[2022-08-28] MEDS: NALTREXONE HCL 50 MG TABLET PO SCH (08:21)
[2022-08-28] MEDS: PARoxetine HCL 20 MG TABLET PO SCH (08:21)
[2022-08-28] MEDS: MULTIVITAMINS WITH MINERALS, THERAPEUTIC TABLET PO SCH (08:21)
[2022-08-28] MEDS: FOLIC ACID 1 MG TABLET PO SCH (08:21)
[2022-08-28 10:46] LABS: GLUCOMETER DEV NAME(LOC) POC.BV
[2022-08-28 20:03] VITALS: BP 109/80
[2022-08-28] MEDS: MELATONIN 5 MG TABLET PO SCH (20:17)
[2022-08-29 04:17] VITALS: BP 117/89
[2022-08-29] MEDS: CloZAPine 100 MG TABLET PO SCH ×2 (08:06→20:33)
[2022-08-29] MEDS: FOLIC ACID 1 MG TABLET PO SCH (08:06)
[2022-08-29] MEDS: MULTIVITAMINS WITH MINERALS, THERAPEUTIC TABLET PO SCH (08:06)
[2022-08-29] MEDS: THIAMINE 100 MG TABLET PO SCH ×2 (08:06→16:41)
[2022-08-29] MEDS: OMEGA-3/DHA/EPA/FISH OIL 1,000 MG CAPSULE PO SCH (08:07)
[2022-08-29] MEDS: PARoxetine HCL 20 MG TABLET PO SCH (08:07)
[2022-08-29] MEDS: NALTREXONE HCL 50 MG TABLET PO SCH (08:07)
[2022-08-29 08:09] VITALS: BP 116/74
[2022-08-29] MEDS ORDERED: PALIPERIDONE PALMITATE 156 MG/ML SYRINGE IM ONE (09:00)
[2022-08-29] MEDS: MAGNESIUM HYDROXIDE SUSPENSION 30 ML UDCUP PO PRN (17:16)
[2022-08-29 20:32] VITALS: BP 111/61
[2022-08-29] MEDS: MELATONIN 5 MG TABLET PO SCH (20:33)
[2022-08-30] MEDS ORDERED: OMEG-135 PO (08:12)
[2022-08-30] MEDS ORDERED: MELA5TAB40 PO (08:12)
[2022-08-30] MEDS ORDERED: CLOZ100T11 PO ×2 (08:12)
[2022-08-30] MEDS ORDERED: NALT50TA PO (08:12)
[2022-08-30] MEDS ORDERED: PARO-37 PO (08:12)
[2022-08-30] MEDS: MULTIVITAMINS WITH MINERALS, THERAPEUTIC TABLET PO SCH (08:16)
[2022-08-30] MEDS: NALTREXONE HCL 50 MG TABLET PO SCH (08:16)
[2022-08-30] MEDS: CloZAPine 100 MG TABLET PO SCH (08:16)
[2022-08-30] MEDS: PARoxetine HCL 20 MG TABLET PO SCH (08:17)
[2022-08-30] MEDS: OMEGA-3/DHA/EPA/FISH OIL 1,000 MG CAPSULE PO SCH (08:17)
[2022-08-30] MEDS: THIAMINE 100 MG TABLET PO SCH (08:17)
[2022-08-30] MEDS: FOLIC ACID 1 MG TABLET PO SCH (08:17)
== END 2022-08-30 09:45 | disposition home or self-care (01) | DRG 750 ==
LOC: B2S 21:36
PROVIDERS: ADMIT Psychiatry & Neurology Psychiatry; ATTEND Psychiatry & Neurology Psychiatry
DX: F20.0 Paranoid schizophrenia (principal); F06.30 Mood disorder due to known physiological condition, unspecified; F32.9 Major depressive disorder, single episode, unspecified; Z55.9 Problems related to education and literacy, unspecified; Z20.822 Contact with and (suspected) exposure to COVID-19; F17.200 Nicotine dependence, unspecified, uncomplicated; F43.10 Post-traumatic stress disorder, unspecified; J44.9 Chronic obstructive pulmonary disease, unspecified; N18.30 Chronic kidney disease, stage 3 unspecified; Z59.9 Problem related to housing and economic circumstances, unspecified; Z65.3 Problems related to other legal circumstances
CPT/HCPCS: 80053; 80061; 80159; 83036; 84439; 84443; 85025; 86592; Q9967

== ENCOUNTER 2022-10-22 20:42 | Inpatient (IN) | payer MEDICAID ==
[~2022-10-22] VITALS: Ht 193 cm; Wt 79.3 kg
[~2022-10-22 20:42] MED LIST changes: -CLOZ100T11 PO; -MELA3TAB89 PO; -OMEP20 PO; -PALI234D IM; -PANT-31 PO; -PRAZ2 PO; +QUET25TA PO; -VENL-67 PO
[2022-10-22] MEDS ORDERED: OLANZapine 5 MG TABLET PO ONE (23:00)
[2022-10-22 23:21] LABS: BASOPHILS % (AUTO) 1.1 % (0.0-2.0); EOSINOPHILS % (AUTO) 2.9 % (1.0-6.0); HEMOGLOBIN 9.4 g/dL (13.5-17.5); LYMPHOCYTES # (AUTO) 2.5 K/uL (1.0-4.8); LYMPHOCYTES % (AUTO) 36.3 % (22.0-44.0); MEAN CORPUSCULAR HEMOGLOBIN 18.6 pg (26.0-34.0); MEAN CORPUSCULAR HGB CONC 30.4 G/dL (31.0-37.0); MEAN CORPUSCULAR VOLUME 61 fL (80-100); MONOCYTES # (AUTO) 0.7 K/uL (0.1-1.0); MONOCYTES % (AUTO) 10.5 % (2.0-9.0); NEUTROPHILS # (AUTO) 3.3 K/uL (1.8-7.7); NEUTROPHILS % (AUTO) 49.2 % (40.0-70.0); PLATELET COUNT (AUTO) 300 K/uL (150-450); RED BLOOD CELL COUNT(AUTO) 5.08 MIL/uL (4.50-5.90); RED CELL DISTRIBUTION WIDTH 21.4 % (11.5-14.5)
[2022-10-22 23:28] LABS: ANION GAP 6 mmol/L (8-16); CALCIUM, TOTAL 9.2 mg/dL (8.8-10.5); CARBON DIOXIDE 34 mmol/L (22-29); CHLORIDE 102 mmol/L (98-107); CREATININE 1.37 mg/dL (0.60-1.30); GLOMERULAR FILTR. RATE CALC > 60 mL/min (>60); GLUCOSE,RANDOM 114 mg/dL (70-110); POTASSIUM 3.6 mmol/L (3.5-5.1); SODIUM SERUM 141 mmol/L (136-145)
[2022-10-22] MEDS ORDERED: QUEtiapine FUMARATE 100 MG TABLET PO PRN (23:30)
[2022-10-22] MEDS ORDERED: ZOLPIDEM TARTRATE 10 MG TABLET PO PRN (23:30)
[2022-10-22] MEDS ORDERED: LORazepam 2 MG TABLET PO PRN (23:30)
[2022-10-22 23:35] LABS: ALANINE AMINOTRANSFERASE 14 U/L (12-78); ALBUMIN 3.3 g/dL (3.4-5.0); ALKALINE PHOSPHATASE 84 U/L (46-116); ASPARTATE AMINOTRANSFERASE 15 U/L (15-37); BILIRUBIN,TOTAL 0.5 mg/dL (0.1-1.0); TOTAL PROTEIN, SERUM 7.4 g/dL (6.4-8.2)
[2022-10-22 23:45] LABS: COVID AG,FIA SOURCE NASOPHARYNGEAL
[2022-10-23 01:25] LABS: APPEARANCE,URINE HAZY (CLEAR); BILIRUBIN,URINE NEGATIVE (NEGATIVE); GLUCOSE, URINE (UA) NEGATIVE (NEGATIVE); KETONES,URINE NEGATIVE (NEGATIVE); LEUKOCYTE ESTERASE ,URINE NEGATIVE (NEGATIVE); NITRATE,URINE NEGATIVE (NEGATIVE); OCCULT BLOOD,URINE NEGATIVE (NEGATIVE); PROTEIN,URINE 30-70 mg/dL (NEGATIVE); SPECIFIC GRAVITIY, URINE 1.025 (1.003-1.030)
[2022-10-23] MEDS ORDERED: PB/HYOSCY/ATR/SCOP/LIDO/MAALOX 55 ML BOTTLE PO ONE (01:30)
[2022-10-23 01:33] LABS: PATHOLOGY REVIEW, DIFF YES
[2022-10-23 01:34] LABS: AMPHET/METH SCREEN,URINE NEGATIVE (NEGATIVE); BARBITURATE SCREEN, URINE NEGATIVE (NEGATIVE); BENZODIAZEPINES SCREEN,URINE NEGATIVE (NEGATIVE); CANNABINOID SCREEN,URINE POSITIVE (NEGATIVE); COCAINE SCREEN,URINE NEGATIVE (NEGATIVE); METHADONE SCREEN, URINE NEGATIVE (NEGATIVE); OPIATE SCREEN,URINE NEGATIVE (NEGATIVE); PHENCYCLIDINE SCREEN,URINE NEGATIVE (NEGATIVE)
[2022-10-23 02:50] VITALS: BP 110/65
[2022-10-23] MEDS ORDERED: PNEUMOCOCCAL VACCINE POLYVALENT 0.5 ML VIAL [PPSV23] IM. ONE (05:30)
[2022-10-23 08:36] VITALS: BP 111/71
[2022-10-23] MEDS ORDERED: FLUoxetine HCL 20 MG CAPSULE PO SCH (12:30)
[2022-10-23] MEDS: PARoxetine HCL 20 MG TABLET PO SCH (13:07)
[2022-10-23 20:05] VITALS: BP 119/75
[2022-10-23] MEDS: CloZAPine 100 MG TABLET PO SCH (20:09)
[2022-10-23] MEDS: MELATONIN 5 MG TABLET PO SCH (20:09)
[2022-10-24 08:10] VITALS: BP 126/79
[2022-10-24] MEDS: PANTOPRAZOLE SODIUM 40 MG DR TABLET PO SCH (08:37)
[2022-10-24] MEDS: PARoxetine HCL 20 MG TABLET PO SCH (08:37)
[2022-10-24 20:04] VITALS: BP 128/89
[2022-10-24] MEDS: MELATONIN 5 MG TABLET PO SCH (20:29)
[2022-10-24] MEDS: CloZAPine 100 MG TABLET PO SCH (20:29)
[2022-10-24 22:05] LABS: GLUCOMETER DEV NAME(LOC) BV2S.; GLUCOSE,POINT OF CARE 147 MG/DL (70-110)
[2022-10-24] MEDS ORDERED: ChlorproMAZINE HCL 50 MG TABLET PO PRN (23:00)
[2022-10-25 01:10] VITALS: BP 131/91
[2022-10-25 08:35] VITALS: BP 116/59
[2022-10-25] MEDS: PANTOPRAZOLE SODIUM 40 MG DR TABLET PO SCH (08:40)
[2022-10-25] MEDS: PARoxetine HCL 20 MG TABLET PO SCH (08:41)
[2022-10-25] MEDS ORDERED: HALOPERIDOL 5 MG TABLET PO PRN (15:00)
[2022-10-25] MEDS ORDERED: HydrOXYzine PAMOATE 50 MG CAPSULE PO PRN (15:00)
[2022-10-25] MEDS ORDERED: MAG HYDROX/AL HYDROX/SIMETH ES 30 ML SUSPENSION UDCUP PO PRN (15:00)
[2022-10-25] MEDS ORDERED: PROMETHAZINE HCL 25 MG TABLET PO PRN (15:00)
[2022-10-25] MEDS ORDERED: GuaiFENesin/D-METHORPHAN [SUGAR-FREE] 200-20MG/10 ML SYRUP UDCUP PO PRN (15:00)
[2022-10-25] MEDS ORDERED: GABAPENTIN 300 MG CAPSULE PO PRN (15:00)
[2022-10-25] MEDS ORDERED: MAGNESIUM HYDROXIDE SUSPENSION 30 ML UDCUP PO PRN (15:00)
[2022-10-25] MEDS ORDERED: ACETAMINOPHEN 325 MG TABLET PO PRN (15:00)
[2022-10-25] MEDS ORDERED: LOPERAMIDE HCL 2 MG CAPSULE PO PRN (15:00)
[2022-10-25] MEDS ORDERED: OLANZapine 5 MG RAPDIS TABLET PO PRN (15:00)
[2022-10-25] MEDS: THIAMINE 100 MG TABLET PO SCH (16:14)
[2022-10-25] MEDS: CloZAPine 100 MG TABLET PO SCH (20:33)
[2022-10-25] MEDS: MELATONIN 5 MG TABLET PO SCH (20:33)
[2022-10-25 21:43] VITALS: BP 108/58
[2022-10-26 08:08] VITALS: BP 124/73
[2022-10-26 08:26] LABS: CHOL/HDL RATIO 2.1 (4.2-7.3); FREE T4 (FREE THYROXINE) 0.94 ng/dL (0.76-1.46); THYROID STIMULATING HORMONE 0.83 uIU/mL (0.36-3.74)
[2022-10-26 08:34] LABS: HEMOGLOBIN A1C 4.6 % (3.8-5.6)
[2022-10-26] MEDS: FOLIC ACID 1 MG TABLET PO SCH (10:08)
[2022-10-26] MEDS: PANTOPRAZOLE SODIUM 40 MG DR TABLET PO SCH (10:09)
[2022-10-26] MEDS: MULTIVITAMINS WITH MINERALS, THERAPEUTIC TABLET PO SCH (10:10)
[2022-10-26] MEDS: THIAMINE 100 MG TABLET PO SCH ×2 (10:10→16:25)
[2022-10-26] MEDS: NALTREXONE HCL 50 MG TABLET PO SCH (10:12)
[2022-10-26] MEDS: OMEGA-3/DHA/EPA/FISH OIL 1,000 MG CAPSULE PO SCH (10:15)
[2022-10-26] MEDS: PARoxetine HCL 20 MG TABLET PO SCH (10:15)
[2022-10-26 20:27] VITALS: BP 113/67
[2022-10-26] MEDS: CloZAPine 100 MG TABLET PO SCH (20:34)
[2022-10-26] MEDS ORDERED: MELATONIN 3 MG TABLET PO SCH (21:00)
[2022-10-27 08:08] VITALS: BP 115/70
[2022-10-27] MEDS: OMEGA-3/DHA/EPA/FISH OIL 1,000 MG CAPSULE PO SCH (09:26)
[2022-10-27] MEDS: PARoxetine HCL 20 MG TABLET PO SCH (09:27)
[2022-10-27] MEDS: FOLIC ACID 1 MG TABLET PO SCH (09:27)
[2022-10-27] MEDS: PANTOPRAZOLE SODIUM 40 MG DR TABLET PO SCH (09:27)
[2022-10-27] MEDS: MULTIVITAMINS WITH MINERALS, THERAPEUTIC TABLET PO SCH (09:28)
[2022-10-27] MEDS: NALTREXONE HCL 50 MG TABLET PO SCH (09:28)
[2022-10-27] MEDS: THIAMINE 100 MG TABLET PO SCH ×2 (09:28→18:06)
[2022-10-27] MEDS: CloZAPine 100 MG TABLET PO SCH (20:50)
[2022-10-27 22:08] VITALS: BP 113/68
[2022-10-28 08:27] VITALS: BP 129/80
[2022-10-28] MEDS: PANTOPRAZOLE SODIUM 40 MG DR TABLET PO SCH (09:30)
[2022-10-28] MEDS: PARoxetine HCL 20 MG TABLET PO SCH (09:30)
[2022-10-28] MEDS: FOLIC ACID 1 MG TABLET PO SCH (09:30)
[2022-10-28] MEDS: OMEGA-3/DHA/EPA/FISH OIL 1,000 MG CAPSULE PO SCH (09:30)
[2022-10-28] MEDS: THIAMINE 100 MG TABLET PO SCH ×2 (09:30→16:39)
[2022-10-28] MEDS: NALTREXONE HCL 50 MG TABLET PO SCH (09:30)
[2022-10-28] MEDS: MULTIVITAMINS WITH MINERALS, THERAPEUTIC TABLET PO SCH (09:30)
[2022-10-28] MEDS: CloZAPine 100 MG TABLET PO SCH (20:26)
[2022-10-28 20:28] VITALS: BP 111/71
[2022-10-29 08:45] VITALS: BP 111/71
[2022-10-29] MEDS: MULTIVITAMINS WITH MINERALS, THERAPEUTIC TABLET PO SCH (09:47)
[2022-10-29] MEDS: OMEGA-3/DHA/EPA/FISH OIL 1,000 MG CAPSULE PO SCH (09:47)
[2022-10-29] MEDS: FOLIC ACID 1 MG TABLET PO SCH (09:47)
[2022-10-29] MEDS: THIAMINE 100 MG TABLET PO SCH ×2 (09:47→16:36)
[2022-10-29] MEDS: NALTREXONE HCL 50 MG TABLET PO SCH (09:47)
[2022-10-29] MEDS: PANTOPRAZOLE SODIUM 40 MG DR TABLET PO SCH (09:47)
[2022-10-29] MEDS: PARoxetine HCL 20 MG TABLET PO SCH (09:47)
[2022-10-29 10:08] LABS: HEMATOCRIT 28.4 % (41-53); HEMOGLOBIN 8.6 g/dL (13.5-17.5); LYMPHOCYTES # (AUTO) 1.9 K/uL (1.0-4.8); LYMPHOCYTES % (AUTO) 39.3 % (22.0-44.0); MEAN CORPUSCULAR HEMOGLOBIN 18.7 pg (26.0-34.0); MEAN CORPUSCULAR HGB CONC 30.3 G/dL (31.0-37.0); MEAN CORPUSCULAR VOLUME 62 fL (80-100); MONOCYTES # (AUTO) 0.4 K/uL (0.1-1.0); MONOCYTES % (AUTO) 8.1 % (2.0-9.0); NEUTROPHILS # (AUTO) 2.2 K/uL (1.8-7.7); NEUTROPHILS % (AUTO) 45.6 % (40.0-70.0); PLATELET COUNT (AUTO) 234 K/uL (150-450); RED CELL DISTRIBUTION WIDTH 21.8 % (11.5-14.5)
[2022-10-29] MEDS: LITHIUM CARBONATE 300 MG CAPSULE PO SCH (16:36)
[2022-10-29 20:27] VITALS: BP 122/70
[2022-10-29] MEDS: CloZAPine 100 MG TABLET PO SCH (20:39)
[2022-10-30] MEDS: MULTIVITAMINS WITH MINERALS, THERAPEUTIC TABLET PO SCH (08:29)
[2022-10-30] MEDS: THIAMINE 100 MG TABLET PO SCH ×2 (08:29→16:44)
[2022-10-30] MEDS: LITHIUM CARBONATE 300 MG CAPSULE PO SCH ×3 (08:29→16:44)
[2022-10-30] MEDS: FOLIC ACID 1 MG TABLET PO SCH (08:29)
[2022-10-30] MEDS: PANTOPRAZOLE SODIUM 40 MG DR TABLET PO SCH (08:35)
[2022-10-30] MEDS: OMEGA-3/DHA/EPA/FISH OIL 1,000 MG CAPSULE PO SCH (08:35)
[2022-10-30] MEDS: NALTREXONE HCL 50 MG TABLET PO SCH (08:35)
[2022-10-30] MEDS: PARoxetine HCL 20 MG TABLET PO SCH (08:40)
[2022-10-30 08:53] VITALS: BP 116/75
[2022-10-30] MEDS: CloZAPine 100 MG TABLET PO SCH (20:13)
[2022-10-30 20:30] VITALS: BP 111/62
[2022-10-31 08:08] VITALS: BP 114/75
[2022-10-31] MEDS: NALTREXONE HCL 50 MG TABLET PO SCH (08:14)
[2022-10-31] MEDS: LITHIUM CARBONATE 300 MG CAPSULE PO SCH ×3 (08:15→16:31)
[2022-10-31] MEDS: FOLIC ACID 1 MG TABLET PO SCH (08:15)
[2022-10-31] MEDS: PANTOPRAZOLE SODIUM 40 MG DR TABLET PO SCH (08:15)
[2022-10-31] MEDS: PARoxetine HCL 20 MG TABLET PO SCH (08:15)
[2022-10-31] MEDS: MULTIVITAMINS WITH MINERALS, THERAPEUTIC TABLET PO SCH (08:15)
[2022-10-31] MEDS: THIAMINE 100 MG TABLET PO SCH ×2 (08:15→16:31)
[2022-10-31] MEDS: OMEGA-3/DHA/EPA/FISH OIL 1,000 MG CAPSULE PO SCH (08:15)
[2022-10-31] MEDS: CloZAPine 100 MG TABLET PO SCH (20:30)
[2022-10-31 22:06] VITALS: BP 115/77
[2022-11-01 08:54] VITALS: BP 104/56
[2022-11-01] MEDS: THIAMINE 100 MG TABLET PO SCH ×2 (08:57→17:06)
[2022-11-01] MEDS: FOLIC ACID 1 MG TABLET PO SCH (08:57)
[2022-11-01] MEDS: OMEGA-3/DHA/EPA/FISH OIL 1,000 MG CAPSULE PO SCH (08:57)
[2022-11-01] MEDS: LITHIUM CARBONATE 300 MG CAPSULE PO SCH ×3 (08:57→17:06)
[2022-11-01] MEDS: MULTIVITAMINS WITH MINERALS, THERAPEUTIC TABLET PO SCH (08:58)
[2022-11-01] MEDS: PANTOPRAZOLE SODIUM 40 MG DR TABLET PO SCH (08:58)
[2022-11-01] MEDS: PARoxetine HCL 20 MG TABLET PO SCH (08:58)
[2022-11-01] MEDS: NALTREXONE HCL 50 MG TABLET PO SCH (08:59)
[2022-11-01] MEDS ORDERED: OMEG-135 PO (16:03)
[2022-11-01] MEDS ORDERED: MELA5TAB40 PO (16:03)
[2022-11-01] MEDS ORDERED: NALT50TA PO (16:03)
[2022-11-01] MEDS ORDERED: CLOZ100T11 PO (16:03)
[2022-11-01] MEDS ORDERED: PARO-37 PO (16:03)
[2022-11-01] MEDS ORDERED: LITH300C3 PO (16:03)
[2022-11-01] MEDS: CloZAPine 100 MG TABLET PO SCH (20:59)
[2022-11-01 21:48] VITALS: BP 110/60
[2022-11-02] MEDS: FOLIC ACID 1 MG TABLET PO SCH (08:07)
[2022-11-02] MEDS: MULTIVITAMINS WITH MINERALS, THERAPEUTIC TABLET PO SCH (08:07)
[2022-11-02] MEDS: PANTOPRAZOLE SODIUM 40 MG DR TABLET PO SCH (08:07)
[2022-11-02] MEDS: NALTREXONE HCL 50 MG TABLET PO SCH (08:07)
[2022-11-02] MEDS: LITHIUM CARBONATE 300 MG CAPSULE PO SCH (08:08)
[2022-11-02] MEDS: PARoxetine HCL 20 MG TABLET PO SCH (08:08)
[2022-11-02] MEDS: OMEGA-3/DHA/EPA/FISH OIL 1,000 MG CAPSULE PO SCH (08:08)
[2022-11-02] MEDS: THIAMINE 100 MG TABLET PO SCH (08:08)
[2022-11-02 08:30] VITALS: BP 106/69
== END 2022-11-02 10:00 | disposition home or self-care (01) | DRG 750 ==
LOC: EMS 20:42 → B2S 10-23 02:41
PROVIDERS: ADMIT Psychiatry & Neurology Psychiatry; ATTEND Psychiatry & Neurology Psychiatry
DX: F25.1 Schizoaffective disorder, depressive type (principal); R45.851 Suicidal ideations; D64.9 Anemia, unspecified; F25.0 Schizoaffective disorder, bipolar type; Z20.822 Contact with and (suspected) exposure to COVID-19; F43.10 Post-traumatic stress disorder, unspecified; K21.00 Gastro-esophageal reflux disease with esophagitis, without bleeding; N18.30 Chronic kidney disease, stage 3 unspecified; I12.9 Hypertensive chronic kidney disease with stage 1 through stage 4 chronic kidney disease, or unspecified chronic kidney disease; K21.9 Gastro-esophageal reflux disease without esophagitis; K44.9 Diaphragmatic hernia without obstruction or gangrene; G47.00 Insomnia, unspecified; Z87.442 Personal history of urinary calculi; Z88.8 Allergy status to other drugs, medicaments and biological substances; Z91.018 Allergy to other foods; Z79.899 Other long term (current) drug therapy
CPT/HCPCS: 80053; 80061; 80159; 80178; 80307; 81003; 82962; 83036; 84439; 84443; 85025; 86592; 87081; 99285; G0480; Q9967

== ENCOUNTER 2023-01-10 14:25 | Emergency (ER) | payer MEDICAID ==
[~2023-01-10] VITALS: Ht 193 cm; Wt 75.0 kg
[~2023-01-10 14:25] MED LIST changes: +CLOZ100T11 PO; +LITH300C3 PO; +MELA5TAB40 PO; +NALT50TA PO; +OMEG-135 PO; +PARO-37 PO; -QUET25TA PO
[2023-01-10 14:28] VITALS: TEMP 98.3
[2023-01-10 19:28] LABS: BASOPHILS % (AUTO) 0.8 % (0.0-2.0); EOSINOPHILS % (AUTO) 7.5 % (1.0-6.0); HEMATOCRIT 25.9 % (41-53); HEMOGLOBIN 7.9 g/dL (13.5-17.5); LYMPHOCYTES # (AUTO) 2.5 K/uL (1.0-4.8); LYMPHOCYTES % (AUTO) 47.9 % (22.0-44.0); MEAN CORPUSCULAR HEMOGLOBIN 18.5 pg (26.0-34.0); MEAN CORPUSCULAR HGB CONC 30.4 G/dL (31.0-37.0); MEAN CORPUSCULAR VOLUME 61 fL (80-100); MONOCYTES # (AUTO) 0.5 K/uL (0.1-1.0); MONOCYTES % (AUTO) 9.3 % (2.0-9.0); NEUTROPHILS # (AUTO) 1.8 K/uL (1.8-7.7); NEUTROPHILS % (AUTO) 34.5 % (40.0-70.0); PLATELET COUNT (AUTO) 222 K/uL (150-450); RED BLOOD CELL COUNT(AUTO) 4.25 MIL/uL (4.50-5.90); RED CELL DISTRIBUTION WIDTH 22.6 % (11.5-14.5)
[2023-01-10 19:32] LABS: ANION GAP 8 mmol/L (8-16); CALCIUM, TOTAL 8.4 mg/dL (8.8-10.5); CARBON DIOXIDE 28 mmol/L (22-29); CHLORIDE 104 mmol/L (98-107); CREATININE 0.99 mg/dL (0.60-1.30); GLOMERULAR FILTR. RATE CALC > 60 mL/min (>60); GLUCOSE,RANDOM 105 mg/dL (70-110); POTASSIUM 3.3 mmol/L (3.5-5.1); SODIUM SERUM 140 mmol/L (136-145)
[2023-01-10 19:38] LABS: ALANINE AMINOTRANSFERASE 13 U/L (12-78); ALBUMIN 2.6 g/dL (3.4-5.0); ALKALINE PHOSPHATASE 74 U/L (46-116); ASPARTATE AMINOTRANSFERASE 18 U/L (15-37); BILIRUBIN,TOTAL 0.4 mg/dL (0.1-1.0); CREATINE KINASE, TOTAL ONLY 53 U/L (39-308); TOTAL PROTEIN, SERUM 5.7 g/dL (6.4-8.2)
[2023-01-10 21:04] VITALS: BP 123/66; PULSE 88; RESP 16
== END 2023-01-10 21:04 | disposition home or self-care (01) ==
LOC: EMS 14:25
DX: G56.22 Lesion of ulnar nerve, left upper limb (principal); M24.542 Contracture, left hand; F25.1 Schizoaffective disorder, depressive type; F41.9 Anxiety disorder, unspecified; F32.A Depression, unspecified; I12.9 Hypertensive chronic kidney disease with stage 1 through stage 4 chronic kidney disease, or unspecified chronic kidney disease; N18.9 Chronic kidney disease, unspecified; F17.210 Nicotine dependence, cigarettes, uncomplicated; F12.90 Cannabis use, unspecified, uncomplicated; Z91.018 Allergy to other foods; Z88.8 Allergy status to other drugs, medicaments and biological substances
CPT/HCPCS: 80053; 82550; 85025; 99284

== ENCOUNTER 2023-01-17 07:40 | Emergency (ER) | payer MEDICAID ==
[~2023-01-17] VITALS: Ht 193 cm; Wt 83.6 kg
[2023-01-17 07:48] VITALS: TEMP 98.3
[2023-01-17 08:31] LABS: BASOPHILS % (AUTO) 0.9 % (0.0-2.0); EOSINOPHILS % (AUTO) 6.5 % (1.0-6.0); HEMATOCRIT 25.8 % (41-53); HEMOGLOBIN 7.9 g/dL (13.5-17.5); LYMPHOCYTES # (AUTO) 1.5 K/uL (1.0-4.8); LYMPHOCYTES % (AUTO) 41.8 % (22.0-44.0); MEAN CORPUSCULAR HEMOGLOBIN 18.1 pg (26.0-34.0); MEAN CORPUSCULAR HGB CONC 30.6 G/dL (31.0-37.0); MEAN CORPUSCULAR VOLUME 59 fL (80-100); MONOCYTES # (AUTO) 0.4 K/uL (0.1-1.0); MONOCYTES % (AUTO) 9.7 % (2.0-9.0); NEUTROPHILS # (AUTO) 1.5 K/uL (1.8-7.7); NEUTROPHILS % (AUTO) 41.1 % (40.0-70.0); PLATELET COUNT (AUTO) 246 K/uL (150-450); RED BLOOD CELL COUNT(AUTO) 4.37 MIL/uL (4.50-5.90); RED CELL DISTRIBUTION WIDTH 21.8 % (11.5-14.5)
[2023-01-17 08:45] LABS: ANION GAP 8 mmol/L (8-16); CALCIUM, TOTAL 8.8 mg/dL (8.8-10.5); CARBON DIOXIDE 24 mmol/L (22-29); CHLORIDE 106 mmol/L (98-107); CREATININE 0.82 mg/dL (0.60-1.30); GLOMERULAR FILTR. RATE CALC > 60 mL/min (>60); GLUCOSE,RANDOM 83 mg/dL (70-110); POTASSIUM 3.6 mmol/L (3.5-5.1); SODIUM SERUM 138 mmol/L (136-145)
[2023-01-17 08:52] LABS: ALANINE AMINOTRANSFERASE 10 U/L (12-78); ALBUMIN 2.8 g/dL (3.4-5.0); ALKALINE PHOSPHATASE 71 U/L (46-116); ASPARTATE AMINOTRANSFERASE 13 U/L (15-37); BILIRUBIN,TOTAL 0.5 mg/dL (0.1-1.0); CREATINE KINASE, TOTAL ONLY 50 U/L (39-308); TOTAL PROTEIN, SERUM 6.2 g/dL (6.4-8.2)
[2023-01-17 08:55] LABS: B-TYPE NATRIURETIC PEPTIDE < 5 pg/mL (0-100)
[2023-01-17 09:24] VITALS: BP 119/64; PULSE 62; RESP 16
== END 2023-01-17 09:27 | disposition home or self-care (01) ==
LOC: EMS 07:47
DX: D64.9 Anemia, unspecified (principal); R42 Dizziness and giddiness; F41.9 Anxiety disorder, unspecified; F32.A Depression, unspecified; I10 Essential (primary) hypertension; F20.9 Schizophrenia, unspecified; F17.210 Nicotine dependence, cigarettes, uncomplicated; F12.90 Cannabis use, unspecified, uncomplicated; I12.9 Hypertensive chronic kidney disease with stage 1 through stage 4 chronic kidney disease, or unspecified chronic kidney disease; N18.30 Chronic kidney disease, stage 3 unspecified; Z91.018 Allergy to other foods; Z88.8 Allergy status to other drugs, medicaments and biological substances
CPT/HCPCS: 80053; 82550; 83880; 84484; 85025; 93005; 99284

== ENCOUNTER 2023-03-01 19:39 | Emergency (ER) | payer MEDICAID ==
[~2023-03-01] VITALS: Ht 193 cm; Wt 75.0 kg
[2023-03-01 21:25] VITALS: BP 129/91; PULSE 72; RESP 14; TEMP 99.1
[2023-03-01 21:50] LABS: BASOPHILS % (AUTO) 0.8 % (0.0-2.0); EOSINOPHILS % (AUTO) 3.3 % (1.0-6.0); HEMATOCRIT 33.4 % (41-53); HEMOGLOBIN 10.4 g/dL (13.5-17.5); LYMPHOCYTES # (AUTO) 2.6 K/uL (1.0-4.8); MEAN CORPUSCULAR HEMOGLOBIN 20.6 pg (26.0-34.0); MEAN CORPUSCULAR HGB CONC 31.1 G/dL (31.0-37.0); MEAN CORPUSCULAR VOLUME 66 fL (80-100); MONOCYTES # (AUTO) 0.6 K/uL (0.1-1.0); NEUTROPHILS # (AUTO) 2.8 K/uL (1.8-7.7); NEUTROPHILS % (AUTO) 43.9 % (40.0-70.0); PLATELET COUNT (AUTO) 203 K/uL (150-450); RED BLOOD CELL COUNT(AUTO) 5.04 MIL/uL (4.50-5.90); RED CELL DISTRIBUTION WIDTH 27.6 % (11.5-14.5); WHITE BLOOD COUNT (AUTO) 6.3 K/uL (4.5-11.0)
[2023-03-01 21:53] LABS: ANION GAP 9 mmol/L (8-16); CALCIUM, TOTAL 9.1 mg/dL (8.8-10.5); CARBON DIOXIDE 23 mmol/L (22-29); CHLORIDE 106 mmol/L (98-107); CREATININE 1.11 mg/dL (0.60-1.30); GLOMERULAR FILTR. RATE CALC > 60 mL/min (>60); GLUCOSE,RANDOM 93 mg/dL (70-110); POTASSIUM 3.4 mmol/L (3.5-5.1); SODIUM SERUM 138 mmol/L (136-145); UREA NITROGEN, BLOOD 12 mg/dL (7-18)
[2023-03-01 21:59] LABS: ALANINE AMINOTRANSFERASE 20 U/L (12-78); ALBUMIN 3.3 g/dL (3.4-5.0); ALKALINE PHOSPHATASE 83 U/L (46-116); ASPARTATE AMINOTRANSFERASE 16 U/L (15-37); BILIRUBIN,TOTAL 0.6 mg/dL (0.1-1.0); TOTAL PROTEIN, SERUM 6.9 g/dL (6.4-8.2)
[2023-03-01 22:01] LABS: ALCOHOL, BLOOD (SERUM) < 3 mg/dL (0-10)
[2023-03-01 22:12] LABS: RBC MORPHOLOGY COMMENT DIMORPHIC RBC
[2023-03-01 22:41] LABS: COVID AG,FIA SOURCE NASOPHARYNGEAL
[2023-03-01 23:07] LABS: SARS-COV2 (COVID) ANTIGEN,FIA Negative (Negative)
[2023-03-02] MEDS ORDERED: LORazepam 2 MG TABLET PO ONE (00:30)
== END 2023-03-02 05:43 | disposition home or self-care (01) ==
LOC: EMS 19:40
DX: F41.9 Anxiety disorder, unspecified (principal); F32.A Depression, unspecified; F20.9 Schizophrenia, unspecified; I12.9 Hypertensive chronic kidney disease with stage 1 through stage 4 chronic kidney disease, or unspecified chronic kidney disease; N18.9 Chronic kidney disease, unspecified; F12.90 Cannabis use, unspecified, uncomplicated; F17.210 Nicotine dependence, cigarettes, uncomplicated; Z20.822 Contact with and (suspected) exposure to COVID-19
CPT/HCPCS: 99283; 87426; 80053; 85025; 36415; G0480

== ENCOUNTER 2023-03-11 07:58 | Inpatient (IN) | payer MEDICAID ==
[~2023-03-11] VITALS: Ht 193 cm; Wt 79.8 kg
[2023-03-11] MEDS ORDERED: QUET100T PO (08:04)
[2023-03-11] MEDS ORDERED: PALI3TAB14 PO (08:04)
[2023-03-11 08:21] LABS: EOSINOPHILS % (AUTO) 5.8 % (1.0-6.0); HEMATOCRIT 32.8 % (41-53); HEMOGLOBIN 10.3 g/dL (13.5-17.5); LYMPHOCYTES # (AUTO) 1.4 K/uL (1.0-4.8); LYMPHOCYTES % (AUTO) 39.1 % (22.0-44.0); MEAN CORPUSCULAR HGB CONC 31.4 G/dL (31.0-37.0); MEAN CORPUSCULAR VOLUME 67 fL (80-100); MONOCYTES # (AUTO) 0.4 K/uL (0.1-1.0); MONOCYTES % (AUTO) 11.6 % (2.0-9.0); NEUTROPHILS # (AUTO) 1.5 K/uL (1.8-7.7); NEUTROPHILS % (AUTO) 42.5 % (40.0-70.0); PLATELET COUNT (AUTO) 226 K/uL (150-450); RED BLOOD CELL COUNT(AUTO) 4.93 MIL/uL (4.50-5.90); RED CELL DISTRIBUTION WIDTH 24.9 % (11.5-14.5); WHITE BLOOD COUNT (AUTO) 3.6 K/uL (4.5-11.0)
[2023-03-11 08:28] LABS: ANION GAP 7 mmol/L (8-16); CALCIUM, TOTAL 8.7 mg/dL (8.8-10.5); CARBON DIOXIDE 25 mmol/L (22-29); CHLORIDE 105 mmol/L (98-107); CREATININE 1.01 mg/dL (0.60-1.30); GLOMERULAR FILTR. RATE CALC > 60 mL/min (>60); GLUCOSE,RANDOM 85 mg/dL (70-110); POTASSIUM 3.7 mmol/L (3.5-5.1); RBC MORPHOLOGY COMMENT ABNORMAL RBC MORPH; SODIUM SERUM 137 mmol/L (136-145); UREA NITROGEN, BLOOD 7 mg/dL (7-18)
[2023-03-11 08:34] LABS: ALANINE AMINOTRANSFERASE 12 U/L (12-78); ALBUMIN 3.1 g/dL (3.4-5.0); ALKALINE PHOSPHATASE 79 U/L (46-116); ASPARTATE AMINOTRANSFERASE 17 U/L (15-37); BILIRUBIN,TOTAL 0.8 mg/dL (0.1-1.0); TOTAL PROTEIN, SERUM 6.9 g/dL (6.4-8.2)
[2023-03-11 08:37] LABS: ALCOHOL, BLOOD (SERUM) < 3 mg/dL (0-10)
[2023-03-11 08:44] LABS: COVID AG,FIA SOURCE NASAL SWAB
[2023-03-11] MEDS ORDERED: BACITRACIN 0.9 GM PACKET OINTMENT TP ONE (09:00)
[2023-03-11 09:40] LABS: SARS-COV2 (COVID) ANTIGEN,FIA Negative (Negative)
[2023-03-11 10:33] LABS: PH,URINE DRUG SCREEN 7.5 (5.0-8.0)
[2023-03-11 10:49] LABS: ALCOHOL, URINE DRUG SCREEN NEGATIVE (NEGATIVE); AMPHET/METH SCREEN,URINE NEGATIVE (NEGATIVE); BARBITURATE SCREEN, URINE NEGATIVE (NEGATIVE); BENZODIAZEPINES SCREEN,URINE NEGATIVE (NEGATIVE); CANNABINOID SCREEN,URINE POSITIVE (NEGATIVE); COCAINE SCREEN,URINE NEGATIVE (NEGATIVE); METHADONE SCREEN, URINE NEGATIVE (NEGATIVE); OPIATE SCREEN,URINE NEGATIVE (NEGATIVE); PHENCYCLIDINE SCREEN,URINE NEGATIVE (NEGATIVE)
[2023-03-11 16:51] VITALS: BP 117/80; PULSE 65; RESP 18; TEMP 97.6
[2023-03-11] MEDS ORDERED: OLANZapine 5 MG RAPDIS TABLET PO PRN (22:45)
[2023-03-11] MEDS ORDERED: ZOLPIDEM TARTRATE 10 MG TABLET PO PRN (22:45)
[2023-03-12] MEDS: LORazepam 2 MG TABLET PO PRN (08:34)
[2023-03-12 08:53] VITALS: BP 115/81; PULSE 72; RESP 18; TEMP 97.4; O2SAT 98
[2023-03-12] MEDS: QUEtiapine FUMARATE 100 MG TABLET PO SCH ×2 (14:41→16:29)
[2023-03-12] MEDS: PALIPERIDONE 3 MG ER TABLET PO SCH (14:41)
[2023-03-12 20:22] VITALS: BP 114/73; PULSE 61; RESP 17; TEMP 97.8; O2SAT 100
[2023-03-13 01:43] VITALS: BP 110/88; PULSE 61; RESP 17; TEMP 97.5; O2SAT 100
[2023-03-13 08:35] VITALS: BP 114/79; PULSE 90; RESP 18; TEMP 97.1; O2SAT 98
[2023-03-13] MEDS: QUEtiapine FUMARATE 100 MG TABLET PO SCH ×3 (08:52→16:15)
[2023-03-13] MEDS: PALIPERIDONE 3 MG ER TABLET PO SCH (08:52)
[2023-03-13 20:28] VITALS: BP 118/82; PULSE 60; RESP 21; TEMP 97.6; O2SAT 98
[2023-03-14 08:42] VITALS: BP 142/83; PULSE 80; RESP 18; TEMP 97.5; O2SAT 100
[2023-03-14] MEDS: PALIPERIDONE 3 MG ER TABLET PO SCH (09:20)
[2023-03-14] MEDS: QUEtiapine FUMARATE 100 MG TABLET PO SCH ×4 (09:20→20:36)
[2023-03-14] MEDS ORDERED: LORazepam 2 MG TABLET PO PRN (14:30)
[2023-03-14] MEDS ORDERED: QUEtiapine FUMARATE 100 MG TABLET PO PRN (14:30)
[2023-03-14] MEDS ORDERED: GuaiFENesin/D-METHORPHAN [SUGAR-FREE] 200-20MG/10 ML SYRUP UDCUP PO PRN (14:30)
[2023-03-14] MEDS ORDERED: HydrOXYzine PAMOATE 50 MG CAPSULE PO PRN (14:30)
[2023-03-14] MEDS ORDERED: ACETAMINOPHEN 325 MG TABLET PO PRN (14:30)
[2023-03-14] MEDS ORDERED: LOPERAMIDE HCL 2 MG CAPSULE PO PRN (14:30)
[2023-03-14] MEDS ORDERED: ZOLPIDEM TARTRATE 10 MG TABLET PO PRN (14:30)
[2023-03-14] MEDS ORDERED: PROMETHAZINE HCL 25 MG TABLET PO PRN (14:30)
[2023-03-14] MEDS: THIAMINE 100 MG TABLET PO SCH (16:43)
[2023-03-14 20:19] VITALS: BP 105/70; PULSE 66; RESP 18; TEMP 98.3; O2SAT 96
[2023-03-14] MEDS: MELATONIN 5 MG TABLET PO SCH (20:35)
[2023-03-14] MEDS: MAG HYDROX/ALUMINUM HYD/SIMETH ES 30 ML SUSPENSION UDCUP PO PRN (21:13)
[2023-03-15 09:05] VITALS: BP 107/62; PULSE 66; RESP 19; TEMP 97.6; O2SAT 98
[2023-03-15] MEDS: NALTREXONE HCL 50 MG TABLET PO SCH (09:39)
[2023-03-15] MEDS: THIAMINE 100 MG TABLET PO SCH ×2 (09:39→17:21)
[2023-03-15] MEDS: FOLIC ACID 1 MG TABLET PO SCH (09:39)
[2023-03-15] MEDS: OMEGA-3/DHA/EPA/FISH OIL 1,000 MG CAPSULE PO SCH (09:39)
[2023-03-15] MEDS: QUEtiapine FUMARATE 100 MG TABLET PO SCH ×4 (09:40→21:52)
[2023-03-15] MEDS: MULTIVITAMINS WITH MINERALS, THERAPEUTIC TABLET PO SCH (09:40)
[2023-03-15] MEDS: GABAPENTIN 100 MG CAPSULE PO SCH ×2 (17:21→21:52)
[2023-03-15 20:37] VITALS: BP 110/76; PULSE 65; RESP 17; TEMP 97.7; O2SAT 100
[2023-03-15] MEDS: MELATONIN 5 MG TABLET PO SCH (21:52)
[2023-03-16] MEDS: MULTIVITAMINS WITH MINERALS, THERAPEUTIC TABLET PO SCH (08:27)
[2023-03-16] MEDS: FOLIC ACID 1 MG TABLET PO SCH (08:27)
[2023-03-16] MEDS: OMEGA-3/DHA/EPA/FISH OIL 1,000 MG CAPSULE PO SCH (08:27)
[2023-03-16] MEDS: THIAMINE 100 MG TABLET PO SCH ×2 (08:28→16:34)
[2023-03-16] MEDS: NALTREXONE HCL 50 MG TABLET PO SCH (08:28)
[2023-03-16] MEDS: QUEtiapine FUMARATE 100 MG TABLET PO SCH ×3 (08:28→16:34)
[2023-03-16] MEDS: GABAPENTIN 100 MG CAPSULE PO SCH ×4 (08:28→20:35)
[2023-03-16] MEDS ORDERED: DULoxetine HCL 20 MG CAPSULE PO SCH (09:00)
[2023-03-16 09:10] VITALS: BP 113/84; PULSE 72; RESP 16; TEMP 97.5; O2SAT 100
[2023-03-16] MEDS: MAGNESIUM HYDROXIDE SUSPENSION 30 ML UDCUP PO PRN (20:07)
[2023-03-16 20:30] VITALS: BP 107/72; PULSE 61; RESP 18; TEMP 97.9; O2SAT 96
[2023-03-16] MEDS: QUEtiapine FUMARATE 200 MG TABLET PO SCH (20:35)
[2023-03-16] MEDS: MELATONIN 5 MG TABLET PO SCH (20:35)
[2023-03-17] MEDS: MAG HYDROX/ALUMINUM HYD/SIMETH ES 30 ML SUSPENSION UDCUP PO PRN (02:31)
[2023-03-17] MEDS ORDERED: DULoxetine HCL 30 MG CAPSULE PO SCH (09:00)
[2023-03-17] MEDS: QUEtiapine FUMARATE 100 MG TABLET PO SCH ×3 (09:11→16:56)
[2023-03-17] MEDS: FOLIC ACID 1 MG TABLET PO SCH (09:11)
[2023-03-17] MEDS: MULTIVITAMINS WITH MINERALS, THERAPEUTIC TABLET PO SCH (09:11)
[2023-03-17] MEDS: GABAPENTIN 100 MG CAPSULE PO SCH ×2 (09:11→12:43)
[2023-03-17] MEDS: OMEGA-3/DHA/EPA/FISH OIL 1,000 MG CAPSULE PO SCH (09:12)
[2023-03-17] MEDS: THIAMINE 100 MG TABLET PO SCH ×2 (09:12→16:56)
[2023-03-17] MEDS: NALTREXONE HCL 50 MG TABLET PO SCH (09:12)
[2023-03-17 10:26] VITALS: BP 123/90; PULSE 62; RESP 17; TEMP 97.2; O2SAT 97
[2023-03-17] MEDS: GABAPENTIN 300 MG CAPSULE PO SCH ×2 (17:06→20:03)
[2023-03-17] MEDS: MAGNESIUM HYDROXIDE SUSPENSION 30 ML UDCUP PO PRN (19:53)
[2023-03-17] MEDS: MELATONIN 5 MG TABLET PO SCH (20:03)
[2023-03-17] MEDS: QUEtiapine FUMARATE 200 MG TABLET PO SCH (20:03)
[2023-03-17 20:36] VITALS: BP 124/80; PULSE 67; RESP 18; TEMP 97.5; O2SAT 100
[2023-03-18 08:30] VITALS: BP 121/86; PULSE 84; RESP 18; TEMP 97.8; O2SAT 95
[2023-03-18] MEDS: OMEGA-3/DHA/EPA/FISH OIL 1,000 MG CAPSULE PO SCH (09:13)
[2023-03-18] MEDS: QUEtiapine FUMARATE 100 MG TABLET PO SCH ×3 (09:14→18:17)
[2023-03-18] MEDS: NALTREXONE HCL 50 MG TABLET PO SCH (09:14)
[2023-03-18] MEDS: GABAPENTIN 300 MG CAPSULE PO SCH ×2 (09:14→12:38)
[2023-03-18] MEDS: MULTIVITAMINS WITH MINERALS, THERAPEUTIC TABLET PO SCH (09:14)
[2023-03-18] MEDS: FOLIC ACID 1 MG TABLET PO SCH (09:14)
[2023-03-18] MEDS: DULoxetine HCL 20 MG CAPSULE PO SCH (09:14)
[2023-03-18] MEDS: THIAMINE 100 MG TABLET PO SCH ×2 (09:15→18:22)
[2023-03-18] MEDS: GABAPENTIN 400 MG CAPSULE PO SCH ×2 (18:23→20:40)
[2023-03-18] MEDS: QUEtiapine FUMARATE 200 MG TABLET PO SCH (20:40)
[2023-03-18] MEDS: MELATONIN 5 MG TABLET PO SCH (20:40)
[2023-03-18 22:24] VITALS: BP 121/80; PULSE 84; RESP 18; TEMP 97.1; O2SAT 97
[2023-03-19] MEDS: THIAMINE 100 MG TABLET PO SCH ×2 (08:33→17:08)
[2023-03-19] MEDS: GABAPENTIN 400 MG CAPSULE PO SCH ×4 (08:33→20:44)
[2023-03-19] MEDS: NALTREXONE HCL 50 MG TABLET PO SCH (08:33)
[2023-03-19] MEDS: OMEGA-3/DHA/EPA/FISH OIL 1,000 MG CAPSULE PO SCH (08:33)
[2023-03-19] MEDS: MULTIVITAMINS WITH MINERALS, THERAPEUTIC TABLET PO SCH (08:33)
[2023-03-19] MEDS: QUEtiapine FUMARATE 100 MG TABLET PO SCH ×3 (08:33→17:08)
[2023-03-19] MEDS: DULoxetine HCL 20 MG CAPSULE PO SCH (08:33)
[2023-03-19] MEDS: FOLIC ACID 1 MG TABLET PO SCH (08:34)
[2023-03-19 08:45] VITALS: BP 118/80; PULSE 77; RESP 18; TEMP 96.6; O2SAT 98
[2023-03-19] MEDS: MAG HYDROX/ALUMINUM HYD/SIMETH ES 30 ML SUSPENSION UDCUP PO PRN (18:48)
[2023-03-19 20:37] VITALS: BP_SYST 117; BP_SYST 131; BP_DIAS 77; BP_DIAS 82; PULSE 68; PULSE 80; RESP 18; TEMP 97.8; TEMP 98.1; O2SAT 96
[2023-03-19] MEDS: QUEtiapine FUMARATE 200 MG TABLET PO SCH (20:44)
[2023-03-19] MEDS: MELATONIN 5 MG TABLET PO SCH (20:44)
[2023-03-20 08:29] VITALS: BP 116/82; PULSE 72; RESP 18; TEMP 97.7; O2SAT 96
[2023-03-20] MEDS: OMEGA-3/DHA/EPA/FISH OIL 1,000 MG CAPSULE PO SCH (08:51)
[2023-03-20] MEDS: DULoxetine HCL 20 MG CAPSULE PO SCH (08:51)
[2023-03-20] MEDS: THIAMINE 100 MG TABLET PO SCH ×2 (08:51→17:15)
[2023-03-20] MEDS: GABAPENTIN 400 MG CAPSULE PO SCH ×4 (08:51→20:42)
[2023-03-20] MEDS: NALTREXONE HCL 50 MG TABLET PO SCH (08:51)
[2023-03-20] MEDS: QUEtiapine FUMARATE 100 MG TABLET PO SCH ×3 (08:51→17:15)
[2023-03-20] MEDS: MULTIVITAMINS WITH MINERALS, THERAPEUTIC TABLET PO SCH (08:52)
[2023-03-20] MEDS: FOLIC ACID 1 MG TABLET PO SCH (08:52)
[2023-03-20] MEDS: MELATONIN 5 MG TABLET PO SCH (20:41)
[2023-03-20] MEDS: QUEtiapine FUMARATE 200 MG TABLET PO SCH (20:41)
[2023-03-20 22:23] VITALS: BP 127/87; PULSE 66; RESP 18; TEMP 98.1; O2SAT 97
[2023-03-21] MEDS: MAG HYDROX/ALUMINUM HYD/SIMETH ES 30 ML SUSPENSION UDCUP PO PRN (02:20)
[2023-03-21] MEDS: THIAMINE 100 MG TABLET PO SCH ×2 (08:52→16:17)
[2023-03-21] MEDS: MULTIVITAMINS WITH MINERALS, THERAPEUTIC TABLET PO SCH (08:53)
[2023-03-21] MEDS: OMEGA-3/DHA/EPA/FISH OIL 1,000 MG CAPSULE PO SCH (08:53)
[2023-03-21] MEDS: NALTREXONE HCL 50 MG TABLET PO SCH (08:53)
[2023-03-21] MEDS: GABAPENTIN 400 MG CAPSULE PO SCH ×4 (08:53→21:37)
[2023-03-21] MEDS: DULoxetine HCL 20 MG CAPSULE PO SCH (08:53)
[2023-03-21] MEDS: FOLIC ACID 1 MG TABLET PO SCH (08:53)
[2023-03-21] MEDS: QUEtiapine FUMARATE 100 MG TABLET PO SCH ×3 (08:53→16:17)
[2023-03-21] MEDS: LORazepam 2 MG TABLET PO PRN ×2 (09:02→21:37)
[2023-03-21 09:59] VITALS: BP 124/83; PULSE 77; RESP 16; TEMP 97.6; O2SAT 99
[2023-03-21 20:34] VITALS: BP 104/74; PULSE 80; RESP 17; TEMP 98.2; O2SAT 96
[2023-03-21] MEDS: MELATONIN 5 MG TABLET PO SCH (21:37)
[2023-03-21] MEDS: QUEtiapine FUMARATE 200 MG TABLET PO SCH (21:52)
[2023-03-22 08:25] VITALS: BP 118/86; PULSE 84; RESP 18; TEMP 97.8; O2SAT 96
[2023-03-22] MEDS: OMEGA-3/DHA/EPA/FISH OIL 1,000 MG CAPSULE PO SCH (09:01)
[2023-03-22] MEDS: FOLIC ACID 1 MG TABLET PO SCH (09:01)
[2023-03-22] MEDS: DULoxetine HCL 60 MG CAPSULE PO SCH (09:01)
[2023-03-22] MEDS: QUEtiapine FUMARATE 100 MG TABLET PO SCH ×3 (09:02→16:51)
[2023-03-22] MEDS: THIAMINE 100 MG TABLET PO SCH ×2 (09:02→16:51)
[2023-03-22] MEDS: NALTREXONE HCL 50 MG TABLET PO SCH (09:02)
[2023-03-22] MEDS: MULTIVITAMINS WITH MINERALS, THERAPEUTIC TABLET PO SCH (09:02)
[2023-03-22] MEDS: GABAPENTIN 400 MG CAPSULE PO SCH ×4 (09:02→20:47)
[2023-03-22] MEDS: MELATONIN 5 MG TABLET PO SCH (20:47)
[2023-03-22] MEDS: QUEtiapine FUMARATE 200 MG TABLET PO SCH (20:47)
[2023-03-22 22:46] VITALS: BP 117/80; PULSE 82; RESP 18; TEMP 98; O2SAT 99
[2023-03-23 08:53] VITALS: BP 113/74; PULSE 73; RESP 18; TEMP 98; O2SAT 100
[2023-03-23] MEDS: OMEGA-3/DHA/EPA/FISH OIL 1,000 MG CAPSULE PO SCH (08:53)
[2023-03-23] MEDS: NALTREXONE HCL 50 MG TABLET PO SCH (08:54)
[2023-03-23] MEDS: GABAPENTIN 300 MG CAPSULE PO SCH ×4 (08:54→20:20)
[2023-03-23] MEDS: QUEtiapine FUMARATE 100 MG TABLET PO SCH ×3 (08:54→16:27)
[2023-03-23] MEDS: MULTIVITAMINS WITH MINERALS, THERAPEUTIC TABLET PO SCH (08:54)
[2023-03-23] MEDS: THIAMINE 100 MG TABLET PO SCH ×2 (08:54→16:27)
[2023-03-23] MEDS: FOLIC ACID 1 MG TABLET PO SCH (08:54)
[2023-03-23] MEDS: DULoxetine HCL 60 MG CAPSULE PO SCH (08:56)
[2023-03-23] MEDS: QUEtiapine FUMARATE 200 MG TABLET PO SCH (20:20)
[2023-03-23] MEDS: MELATONIN 5 MG TABLET PO SCH (20:20)
[2023-03-23 21:30] VITALS: BP 153/92; PULSE 75; RESP 18; TEMP 98.1; O2SAT 97
[2023-03-24 08:47] VITALS: BP 136/81; PULSE 84; RESP 18; TEMP 97.8; O2SAT 98
[2023-03-24] MEDS: FOLIC ACID 1 MG TABLET PO SCH (08:47)
[2023-03-24] MEDS: OMEGA-3/DHA/EPA/FISH OIL 1,000 MG CAPSULE PO SCH (08:47)
[2023-03-24] MEDS: MULTIVITAMINS WITH MINERALS, THERAPEUTIC TABLET PO SCH (08:48)
[2023-03-24] MEDS: DULoxetine HCL 60 MG CAPSULE PO SCH (08:48)
[2023-03-24] MEDS: THIAMINE 100 MG TABLET PO SCH (08:48)
[2023-03-24] MEDS: QUEtiapine FUMARATE 100 MG TABLET PO SCH ×2 (08:48→12:53)
[2023-03-24] MEDS: NALTREXONE HCL 50 MG TABLET PO SCH (08:48)
[2023-03-24] MEDS: GABAPENTIN 300 MG CAPSULE PO SCH ×2 (08:48→12:53)
[2023-03-24] MEDS ORDERED: OMEG-135 PO (13:05)
[2023-03-24] MEDS ORDERED: MELA5TAB40 PO (13:05)
[2023-03-24] MEDS ORDERED: DULO-114 PO (13:05)
[2023-03-24] MEDS ORDERED: NALT50TA PO (13:05)
[2023-03-24] MEDS ORDERED: QUET200T30 PO (13:05)
[2023-03-24] MEDS ORDERED: GABA-1181 PO (13:05)
[2023-03-24] MEDS ORDERED: QUET100T34 PO (13:05)
[2023-03-24] MEDS ORDERED: OMEP-99 PO (13:27)
[2023-03-25] MEDS ORDERED: DULoxetine HCL 30 MG CAPSULE PO SCH (09:00)
== END 2023-03-24 15:00 | disposition home or self-care (01) | DRG 750 ==
LOC: EMS 08:02 → B3A 12:58 → B2S 20:31
PROVIDERS: ADMIT Psychiatry & Neurology Psychiatry; ATTEND Psychiatry & Neurology Psychiatry
DX: F25.1 Schizoaffective disorder, depressive type (principal); R45.851 Suicidal ideations; F41.9 Anxiety disorder, unspecified; F43.10 Post-traumatic stress disorder, unspecified; I12.9 Hypertensive chronic kidney disease with stage 1 through stage 4 chronic kidney disease, or unspecified chronic kidney disease; K44.9 Diaphragmatic hernia without obstruction or gangrene; Z20.822 Contact with and (suspected) exposure to COVID-19; N18.30 Chronic kidney disease, stage 3 unspecified; K21.9 Gastro-esophageal reflux disease without esophagitis; Z79.899 Other long term (current) drug therapy; Z87.442 Personal history of urinary calculi; Z88.8 Allergy status to other drugs, medicaments and biological substances; Z91.018 Allergy to other foods
CPT/HCPCS: 80053; 80307; 85025; 87081; 99285; G0480; Q9967